=== PATIENT | female | born 1935 | race African-American/Black ===

== ENCOUNTER 2017-01-16 15:36 | Observation (INO) | payer OTHER ==
[2017-01-16 15:48] VITALS: BMI 20.9
--- NOTE | 2017-01-16 15:50 | PDOC ---
History of Present Illness <Ronen Gant - Last Filed: 01/16/17 18:14> - General History Source: Patient, Family Exam Limitations: No Limitations - History of Present Illness Initial Comments: 01/16/17 16:51 The patient is an 81 year old female with a significant past medical history of hypertension, lupus, aortic stenosis, osteoarthritis, hypothyroidism, mild stroke, and interstitial lung disease, sent by PCP to the Emergency Department with presyncopal episode this morning. The patient reports that she woke up this morning, walked to the bathroom and felt as if she was going to pass out . The patient reports that she got back into bed and experienced palpitations and shortness of breath. She admits that walking back to bed she had an unsteady gait. The patient reports that she has had night sweats for the past week. She also reports foul smelling urine. As per the patients daughter, the patient looked pale this morning. The patients daughter admits that the patient has a history of recurrent UTIs, most recently 2-3 months ago. The patient admits that she went to see Dr. Voss at 11am after the incident, who was suspicious of an acute COPD exacerbation and suggested she come to the ED. The patient denies fever, or cough. Patient denies chest pain. Patient denies dysuria, or urinary frequency. Patient denies loss of consciousness, or head trauma. Patient denies nausea, vomiting, and diarrhea. PCP: Dr. Nils Voss Cardio: Dr. Cota <Enedina Bennett - Last Filed: 01/16/17 18:21> - General Chief Complaint: Shortness of Breath Stated Complaint: SOB (PCP SENT) Time Seen by Provider: 01/16/17 15:48 Past History - Past Medical History Anemia: No Asthma: No Cancer: No Cardiac Disorders: No CVA: No COPD: No CHF: No Dementia: No Diabetes: No GI Disorders: No Disorders: No HTN: Yes Hypercholesterolemia: No Liver Disease: No Seizures: No Thyroid Disease: Yes Lung CA: No (interstitial lung disease) Other medical history: lupus, aortic stenosis - Immunization History Immunization Up to Date: Yes - Psycho/Social/Smoking Cessation Hx Suicidal Ideation: No Smoking History: Never smoked Have you smoked in the past 12 months: No Hx Alcohol Use: No Drug/Substance Use Hx: No Substance Use Type: None <Ronen Gant - Last Filed: 01/16/17 18:14> <Enedina Bennett - Last Filed: 01/16/17 18:21> - Past Medical History Allergies/Adverse Reactions: Allergies Allergy/AdvReac Type Severity Reaction Status Date / Time No Known Allergies Allergy Unverified 01/16/17 15:43 Home Medications: Ambulatory Orders Aspirin [ASA -] 81 mg PO DAILY 05/14/16 Diltiazem [Cardizem -] 180 mg PO BID 05/14/16 Donepezil HCl 5 mg PO DAILY 05/14/16 Furosemide 60 mg PO DAILY 05/14/16 Hydralazine HCl 50 mg PO TID 05/14/16 Isosorbide Mononitrate [Imdur -] 60 mg PO BID 05/14/16 Levothyroxine [Synthroid -] 50 mcg PO DAILY 05/14/16 Losartan Potassium 100 mg PO DAILY 05/14/16 Hydroxychloroquine So4 [Plaquenil -] 200 mg PO DAILY 01/16/17 Risedronate Sodium 150 mg PO MONTHLY 01/16/17 Review of Systems - Review of Systems Able to Perform ROS?: Yes Comments:: 01/16/17 16:52 GENERAL/CONSTITUTIONAL: + night sweats, + unsteady gait. No fever. No weakness. HEAD, EYES, EARS, NOSE AND THROAT: No change in vision. No ear pain or discharge. No sore throat. CARDIOVASCULAR: + palpitations, + shortness of breath. No chest pain. RESPIRATORY: No cough, wheezing, or hemoptysis. GASTROINTESTINAL: No nausea, vomiting, diarrhea or constipation. GENITOURINARY: + foul smelling urine. No dysuria, or frequency. MUSCULOSKELETAL: No joint or muscle swelling or pain. No neck or back pain. SKIN: No rash NEUROLOGIC: No headache, vertigo, loss of consciousness, or change in strength/ sensation. ENDOCRINE: No increased thirst. No abnormal weight change. HEMATOLOGIC/LYMPHATIC: No anemia, easy bleeding, or history of blood clots. ALLERGIC/IMMUNOLOGIC: No hives or skin allergy. <Enedina Bennett - Last Filed: 01/16/17 18:21> *Physical Exam - Vital Signs Last Vital Signs Temp Pulse Resp BP Pulse Ox 97.1 F L 68 22 147/66 97 01/16/17 15:43 01/16/17 15:43 01/16/17 15:43 01/16/17 15:43 01/16/17 15:43 <Ronen Gant - Last Filed: 01/16/17 18:14> - Vital Signs Last Vital Signs Temp Pulse Resp BP Pulse Ox 97.1 F L 68 22 147/66 100 01/16/17 15:43 01/16/17 15:43 01/16/17 15:43 01/16/17 15:43 01/16/17 16:10 - Physical Exam Comments: 01/16/17 16:54 GENERAL: Awake, alert, and fully oriented, in no acute distress HEAD: No signs of trauma EYES: PERRLA, EOMI, sclera anicteric, conjunctiva clear ENT: Auricles normal inspection, hearing grossly normal, nares patent, oropharynx clear without exudates. Moist mucosa NECK: Normal ROM, supple, no lymphadenopathy, JVD, or masses LUNGS: Breath sounds equal, clear to auscultation bilaterally. No wheezes, and no crackles HEART: Systolic murmur, regular rate and rhythm, normal S1 and S2, no murmurs, rubs or gallops ABDOMEN: Soft, nontender, normoactive bowel sounds. No guarding, no rebound. No masses EXTREMITIES: Normal range of motion, no edema. No clubbing or cyanosis. No cords, erythema, or tenderness NEUROLOGICAL: Cranial nerves II through XII grossly intact. Normal speech SKIN: Warm, Dry, normal turgor, no rashes or lesions noted. <Enedina Bennett - Last Filed: 01/16/17 18:21> ED Treatment Course - LABORATORY CBC & Chemistry Diagram: 01/16/17 16:50 01/16/17 16:50 <Ronen Gant - Last Filed: 01/16/17 18:14> - LABORATORY CBC & Chemistry Diagram: 01/16/17 16:50 01/16/17 16:50 - RADIOLOGY Radiograph Interpretation: 01/16/17 17:41 Chest XRay As reviewed by Dr. Luz Jimenez IMPRESSION: Since prior chest xray, the cardiac silhouette remains slightly to moderately enlarged with unfolding of the aortic arch. Bilateral increased interstitial lung markings are again seen mainly involving the lower lobes. Superimposed infiltrates cannot be excluded. Mediastinum and visualized osseous structures appear intact. <Enedina Bennett - Last Filed: 01/16/17 18:21> Medical Decision Making - Medical Decision Making 01/16/17 18:06 Dr. Voss was called at his office at 6:07. Awaiting call back. 01/16/17 18:11 Dr. Wilson returned call and spoke to Dr. Gant about the patient's care. Dr. Wilson agreed to admit for chest pain, to admits under [place]'s service, and Dr. Wilson will input orders. <Enedina Bennett - Last Filed: 01/16/17 18:21> *DC/Admit/Observation/Transfer - Discharge Dispostion Admit: Yes - Attestations Physician Attestion: 01/16/17 15:50 I, Dr. Ronen Gant, attest that this document has been prepared under my direction and personally reviewed by me in its entirety. I further attest, that it accurately reflects all work, treatment, procedures and medical decision -making performed by me. <Ronen Gant - Last Filed: 01/16/17 18:14> - Attestations Scribe Attestion: 01/16/17 16:55 Documentation prepared by Enedina Bennett, acting as medical director for Ronen Gant DO. <Enedina Bennett - Last Filed: 01/16/17 18:21> Diagnosis at time of Disposition: Syncope, near, Hypothyroid Chest pain Qualifiers: Chest pain type: unspecified Qualified Code(s): R07.9 - Chest pain, unspecified Dyspnea Qualifiers: Dyspnea type: shortness of breath Qualified Code(s): R06.02 - Shortness of breath - Discharge Dispostion Condition at time of disposition: Unchanged/Unknown - Referrals Referrals: Nils Voss MD [Primary Care Provider] -
[2017-01-16 17:20] LABS: BASOPHIL 2.2 % (0-2.0); EOSINOPHIL 0.3 % (0-4.5); MCH 25.6 pg (25.7-33.7); MCHC 33.7 g/dl (32.0-36.0); MEAN CELL VOLUME 75.9 fl (80-96); MEAN PLT VOLUME 9.2 fl (7.5-11.1); PLATELET COUNT 229 K/MM3 (134-434); RDW 19.9 % (11.6-15.6); WHITE BLOOD COUNT 4.9 K/mm3 (4.0-10.0)
[2017-01-16 17:34] LABS: INR 1.14 (0.82-1.09); PROTHROMBIN TIME (PATIENT) 12.6 SEC (9.98-11.88)
[2017-01-16 17:41] LABS: ALBUMIN 3.4 g/dl (3.4-5.0); ANION GAP 10 (8-16); BILIRUBIN,TOTAL 0.7 mg/dL (0.2-1.0); CALCIUM 8.3 mg/dL (8.5-10.1); CO2 25 mmol/L (21-32); CREATININE 0.9 mg/dL (0.55-1.02); GLUCOSE,RANDOM 79 mg/dL (74-106); SGPT/ALT 15 U/L (12-78); TOT PROT 9.2 g/dl (6.4-8.2)
[2017-01-16 17:44] LABS: ALK PHOS 99 U/L (45-117); TROPONIN I < 0.02 ng/ml (0.00-0.05)
[2017-01-16 17:45] LABS: SGOT/AST 28 U/L (15-37)
[2017-01-16] MEDS ORDERED: hydrALAZINE HCL 50 MG TABLET (FP) PO ONE (18:23)
[2017-01-16] MEDS ORDERED: ISOSORBIDE MONONITRATE 60 MG TAB.SR.24H (FP) PO ONE ×2 (18:24→18:26)
[2017-01-16] MEDS ORDERED: hydrALAZINE HCL 25 MG TABLET (FP) ONE (18:26)
[2017-01-16 18:38] LABS: URINE APPEARANCE CLEAR; URINE BILIRUBIN NEGATIVE (NEGATIVE); URINE BLOOD NEGATIVE (NEGATIVE); URINE GLUCOSE (UA) NEGATIVE (NEGATIVE); URINE KETONE NEGATIVE (NEGATIVE); URINE LEUK ESTERASE NEGATIVE (NEGATIVE); URINE PROTEIN NEGATIVE (NEGATIVE); URINE UROBILINOGEN 0.2 E.U/dl E.U./dl (0.2-1.0)
[2017-01-16 18:43] LABS: URINE COLOR YELLOW; URINE NITRITE POSITIVE (NEGATIVE)
[2017-01-16 18:58] LABS: URINE BACTERIA RARE /hpf (NONE SEEN); URINE MUCUS RARE; URINE RBC 1 /hpf (0-3); URINE WBC 1 /hpf (3-5)
[2017-01-16] MEDS ORDERED: CEFTRIAXONE 1 GM in DEXTROSE 5%-WATER - 50 ML IVPB ONE (19:08)
[2017-01-16] MEDS ORDERED: RISEDRONATE SODIUM 150 MG PO SCH (23:30)
[2017-01-17] MEDS: hydrALAZINE HCL 50 MG TABLET (FP) PO SCH ×3 (06:29→21:07)
[2017-01-17] MEDS: LEVOTHYROXINE NA 50 MCG TABLET (FP) PO SCH (06:29)
--- NOTE | 2017-01-17 09:02 | EKG ---
Test Reason : Blood Pressure : / mmHG Vent. Rate : 075 BPM Atrial Rate : 075 BPM P-R Int : 142 ms QRS Dur : 096 ms QT Int : 420 ms P-R-T Axes : -13 -34 -35 degrees QTc Int : 469 ms SINUS RHYTHM WITH PREMATURE ATRIAL COMPLEXES LEFT AXIS DEVIATION NONSPECIFIC ST AND T WAVE ABNORMALITY ABNORMAL ECG Confirmed by GOKUL FOSTER MD ([id number]) on 01/17/2017 9:01:38 AM Referred By: Confirmed By:GOKUL FOSTER MD
[2017-01-17] MEDS: ASPIRIN 81 MG CHEWABLE TABLETS PO SCH (09:55)
[2017-01-17] MEDS: LOSARTAN POTASSIUM 50 MG TABLET (FP) PO SCH (09:55)
[2017-01-17] MEDS: ISOSORBIDE MONONITRATE 60 MG TAB.SR.24H (FP) PO SCH ×2 (09:55→21:08)
[2017-01-17] MEDS: FUROSEMIDE 20 MG TABLET (FP) PO SCH (09:55)
[2017-01-17] MEDS: dilTIAZem HCL 60 MG TABLET (FP) PO SCH ×2 (09:55→21:07)
[2017-01-17] MEDS: HYDROXYCHLOROQUINE SO4 200 MG TABLET (FP) PO SCH (09:56)
--- NOTE | 2017-01-17 11:09 | CON.CARD ---
Cardiology Consult (text) - Consultation Consultation Note: cc: lightheaded hpi: 81 f hx htn, hypothyroid, sle, , dchf/le edema, palps, here with episode of presyncope. Pt says yesterday she stood up to use bathroom and felt lightheaded. She did not pass out or fall. She sat back down and symptoms resolved. She went to pmd and sent to ER for further eval. Pt denies cp, sob, palps, loc, pnd, orthopnea, le edema. Sees me for cardio. pmh: per hpi psh: nc social: no tob fam: no premature cad, scd ros: per hpi; no fever, nvd, cough, nasal congestion, gillespie, vision changes, gib, hematuria, muscle pain meds: Home Medications Medication Instructions Recorded Aspirin [ASA -] 81 mg PO DAILY 05/14/16 Diltiazem [Cardizem -] 180 mg PO BID 05/14/16 Donepezil HCl 5 mg PO HS 05/14/16 Furosemide 60 mg PO DAILY 05/14/16 Hydralazine HCl 50 mg PO TID 05/14/16 Isosorbide Mononitrate [Imdur -] 60 mg PO BID 05/14/16 Levothyroxine [Synthroid -] 50 mcg PO DAILY 05/14/16 Losartan Potassium 100 mg PO DAILY 05/14/16 Hydroxychloroquine So4 [Plaquenil 200 mg PO DAILY 01/16/17 -] Risedronate Sodium 150 mg PO MONTHLY 01/16/17 pe: Vital Signs Period Temp Pulse Resp BP Sys/Negron Pulse Ox Last 24 Hr 97.1 F-98.9 F 61-74 16-22 145-185/66-90 97-100 nad no jvd rrr s1s2 +as murmur, no rg cta bl nl eff aaox3 no le e/c/c abd nt nd pos bs no jaundice diaphoresis pos dp pt no carotid bruits Laboratory Last Values WBC 4.9 K/mm3 (4.0-10.0) 01/16/17 16:50 RBC 4.21 M/mm3 (3.60-5.2) 01/16/17 16:50 Hgb 10.8 GM/dL (10.7-15.3) 01/16/17 16:50 Hct 32.0 % (32.4-45.2) L 01/16/17 16:50 MCV 75.9 fl (80-96) L 01/16/17 16:50 MCHC 33.7 g/dl (32.0-36.0) 01/16/17 16:50 RDW 19.9 % (11.6-15.6) H 01/16/17 16:50 Plt Count 229 K/MM3 (134-434) 01/16/17 16:50 MPV 9.2 fl (7.5-11.1) 01/16/17 16:50 Neutrophils % 80.0 % (42.8-82.8) D 01/16/17 16:50 Lymphocytes % 11.8 % (8-40) D 01/16/17 16:50 Monocytes % 5.7 % (3.8-10.2) 01/16/17 16:50 Eosinophils % 0.3 % (0-4.5) D 01/16/17 16:50 Basophils % 2.2 % (0-2.0) H 01/16/17 16:50 INR 1.14 (0.82-1.09) 01/16/17 16:50 Sodium 140 mmol/L (136-145) 01/16/17 16:50 Potassium 3.8 mmol/L (3.5-5.1) 01/16/17 16:50 Chloride 105 mmol/L (98-107) 01/16/17 16:50 Carbon Dioxide 25 mmol/L (21-32) 01/16/17 16:50 Anion Gap 10 (8-16) 01/16/17 16:50 BUN 26 mg/dL (7-18) H 01/16/17 16:50 Creatinine 0.9 mg/dL (0.55-1.02) 01/16/17 16:50 Creat Clearance w eGFR 59.80 (>60) 01/16/17 16:50 Random Glucose 79 mg/dL (74-106) 01/16/17 16:50 Lactic Acid 0.7 mmol/L (0.4-2.0) 01/16/17 17:16 Calcium 8.3 mg/dL (8.5-10.1) L 01/16/17 16:50 Total Bilirubin 0.7 mg/dL (0.2-1.0) 01/16/17 16:50 AST 28 U/L (15-37) D 01/16/17 16:50 ALT 15 U/L (12-78) 01/16/17 16:50 Alkaline Phosphatase 99 U/L (45-117) 01/16/17 16:50 Creatine Kinase 90 IU/L (26-192) 01/16/17 16:50 Troponin I < 0.02 ng/ml (0.00-0.05) 01/16/17 16:50 B-Natriuretic Peptide 431.40 pg/ml (5-450) 01/16/17 16:50 Total Protein 9.2 g/dl (6.4-8.2) H 01/16/17 16:50 Albumin 3.4 g/dl (3.4-5.0) 01/16/17 16:50 Urine Color Yellow 01/16/17 17:30 Urine Appearance Clear 01/16/17 17:30 Urine pH 6.0 (5.0-8.0) 01/16/17 17:30 Ur Specific [place] 1.020 (1.005-1.025) 01/16/17 17:30 Urine Protein Negative (NEGATIVE) 01/16/17 17:30 Urine Glucose (UA) Negative (NEGATIVE) 01/16/17 17:30 Urine Ketones Negative (NEGATIVE) 01/16/17 17:30 Urine Blood Negative (NEGATIVE) 01/16/17 17:30 Urine Nitrite Positive (NEGATIVE) 01/16/17 17:30 Urine Bilirubin Negative (NEGATIVE) 01/16/17 17:30 Urine Urobilinogen 0.2 e.u/dl E.U./dl (0.2-1.0) 01/16/17 17:30 Ur Leukocyte Esterase Negative (NEGATIVE) 01/16/17 17:30 Urine RBC 1 /hpf (0-3) 01/16/17 17:30 Urine WBC 1 /hpf (3-5) 01/16/17 17:30 Urine Bacteria Rare /hpf (NONE SEEN) 01/16/17 17:30 Urine Mucus Rare 01/16/17 17:30 ecg 01/16/17: sr, pacs, nl intervals, no ischemic changes cxr: no chf echo 03/2016: nl lv/rv, mild lae, mild ar, mod , mac, mild tr, mild phtn echo 05/2016: nl lv/rv, mod donte, rvsp 40-50, mod tr, mod as, mild-mod ar, mild- mod pr event monitor (2 weeks) 03/2016: benign, occ pacs, pvcs carotids 01/2015: small plaque, no sig stenosis mibi 02/2015: no ischemia tele: sr, pacs a/p: 81 f hx htn, hypothyroid, sle, , dchf/le edema, palps, here with episode of presyncope. presyncope: -seems orthostatic based on description -recent carotid US unremarkable when admitted here 05/2016 -echo 05/2016 no sig change from prior -no signs acs or chf -will check updated echo to see if any change in severity of -will order orthostatic VS's -monitor on tele 24 hours -infection w/u per pmd htn: -cont home meds : -05/2016 echo with moderate , will check updated echo here given her presyncope episode chronic diastolic chf: -stable, no gross vol overload, cont home po lasix palps: -chronic symptom likely due to occasional pacs and pvcs seen on outpt holter and event monitor -normal lvef -has not been bothering pt, monitor for now
--- NOTE | 2017-01-17 12:00 | HP ---
Admitting History and Physical - Primary Care Physician PCP: Nils Voss - Admission Chief Complaint: I felt weak History of Present Illness: Ms Lu is a pleasant 81 year old female who comes in with lightheadedness. According to patient and daughter, she has non-specific complaints of not feeling well since 01/14. Patient cannot describe exactly what that meant earlier this week, but yesterday she says she began to feel very weak. She says she got up to make tea and began to feel lightheaded. She was able to make it back to the bed without falling, but she says she was weak as well. She was also short of breath. Her daughter saw her and felt her color was off, she was seen by Dr Voss and sent in for further evaluation. Patient said she had L sided chest pain and daughter says yesterday she was having left sided flank pain. Aside from this she is without complaint. She denies fevers, chills, passing out, chest pain, coughing, abdominal pain, nausea, vomiting, diarrhea, constipation, or swelling. She is currently feeling better. History Source: Patient Limitations to Obtaining History: No Limitations - Past Medical History REVENUE RESEARCH ANALYST: Yes: TIA Cardiovascular: Yes: Aortic Stenosis, HTN Pulmonary: Yes: Other (ILD) Musculoskeletal: Yes: Osteoarthritis Rheumatology: Yes: Lupus Endocrine: Yes: Hypothyroidism - Smoking History Smoking history: Never smoked Have you smoked in the past 12 months: No - Alcohol/Substance Use Hx Alcohol Use: No History of Substance Use: reports: None - Social History Usual Living Arrangement: Yes: With Child ADL: Family Assistance Occupation: former nurse's aide History of Recent Travel: No Home Medications - Allergies Allergies/Adverse Reactions: Allergies Allergy/AdvReac Type Severity Reaction Status Date / Time No Known Allergies Allergy Unverified 01/16/17 15:43 - Home Medications Home Medications: Ambulatory Orders Aspirin [ASA -] 81 mg PO DAILY 05/14/16 Diltiazem [Cardizem -] 180 mg PO BID 05/14/16 Donepezil HCl 5 mg PO HS 05/14/16 Furosemide 60 mg PO DAILY 05/14/16 Hydralazine HCl 50 mg PO TID 05/14/16 Isosorbide Mononitrate [Imdur -] 60 mg PO BID 05/14/16 Levothyroxine [Synthroid -] 50 mcg PO DAILY 05/14/16 Losartan Potassium 100 mg PO DAILY 05/14/16 Hydroxychloroquine So4 [Plaquenil -] 200 mg PO DAILY 01/16/17 Risedronate Sodium 150 mg PO MONTHLY 01/16/17 Family Disease History - Family Disease History Family History: Unremarkable Review of Systems Findings/Remarks: Full review of systems obtained, as per HPI and otherwise negative. Physical Examination Vital Signs: Vital Signs Temperature 98.2 F 01/17/17 08:10 Pulse Rate 74 01/17/17 08:10 Respiratory Rate 16 01/17/17 08:10 Blood Pressure 160/90 01/17/17 08:10 O2 Sat by Pulse Oximetry (%) 96 01/17/17 10:00 Constitutional: Yes: Well Nourished, No Distress, Calm Eyes: Yes: Conjunctiva Clear, EOM Intact, PERRL HENT: Yes: Atraumatic, Normocephalic Cardiovascular: Yes: Regular Rate and Rhythm. No: Gallop, Murmur, Rub Respiratory: Yes: Regular, Rhonchi (bibasilar). No: Rales, Wheezes Gastrointestinal: Yes: Normal Bowel Sounds, Soft. No: Distention, Tenderness Extremities: Yes: WNL Edema: No Labs: Laboratory Results - last 24 hr 01/16/17 01/16/17 01/16/17 16:50 16:50 16:50 WBC 4.9 RBC 4.21 Hgb 10.8 Hct 32.0 L MCV 75.9 L MCHC 33.7 RDW 19.9 H Plt Count 229 MPV 9.2 Neutrophils % 80.0 D Lymphocytes % 11.8 D Monocytes % 5.7 Eosinophils % 0.3 D Basophils % 2.2 H INR 1.14 Sodium 140 Potassium 3.8 Chloride 105 Carbon Dioxide 25 Anion Gap 10 BUN 26 H Creatinine 0.9 Creat Clearance w eGFR 59.80 Random Glucose 79 Lactic Acid Calcium 8.3 L Total Bilirubin 0.7 AST 28 D ALT 15 Alkaline Phosphatase 99 Creatine Kinase 90 Troponin I < 0.02 B-Natriuretic Peptide 431.40 Total Protein 9.2 H Albumin 3.4 Urine Color Urine Appearance Urine pH Ur Specific [place] Urine Protein Urine Glucose (UA) Urine Ketones Urine Blood Urine Nitrite Urine Bilirubin Urine Urobilinogen Ur Leukocyte Esterase Urine RBC Urine WBC Urine Bacteria Urine Mucus 01/16/17 01/16/17 17:16 17:30 WBC RBC Hgb Hct MCV MCHC RDW Plt Count MPV Neutrophils % Lymphocytes % Monocytes % Eosinophils % Basophils % INR Sodium Potassium Chloride Carbon Dioxide Anion Gap BUN Creatinine Creat Clearance w eGFR Random Glucose Lactic Acid 0.7 Calcium Total Bilirubin AST ALT Alkaline Phosphatase Creatine Kinase Troponin I B-Natriuretic Peptide Total Protein Albumin Urine Color Yellow Urine Appearance Clear Urine pH 6.0 Ur Specific [place] 1.020 Urine Protein Negative Urine Glucose (UA) Negative Urine Ketones Negative Urine Blood Negative Urine Nitrite Positive Urine Bilirubin Negative Urine Urobilinogen 0.2 e.u/dl Ur Leukocyte Esterase Negative Urine RBC 1 Urine WBC 1 Urine Bacteria Rare Urine Mucus Rare Imaging - Results Chest X-ray: Report Reviewed, Image Reviewed Problem List - Problems (1) Syncope, near Assessment/Plan: -sounds orthostatic in nature -agree with cardiology evaluation -check orthostatic vital signs -monitor -PT consult Code(s): R55 - SYNCOPE AND COLLAPSE (2) Hypothyroid Assessment/Plan: -continue synthroid Code(s): E03.9 - HYPOTHYROIDISM, UNSPECIFIED (3) CVA (cerebral vascular accident) Assessment/Plan: -stable -continue aspirin Code(s): I63.9 - CEREBRAL INFARCTION, UNSPECIFIED (4) Hypertension Assessment/Plan: -continue hydralazine, diltiazem, and cozaar -monitor, elevated on last check Code(s): I10 - ESSENTIAL (PRIMARY) HYPERTENSION (5) Flank pain Assessment/Plan: -urinalysis shows nitrites positive -will check ultrasound -continue rocephin empirically, day 2 Code(s): R10.9 - UNSPECIFIED ABDOMINAL PAIN
[2017-01-17] MEDS: LACTOBACILLUS ACIDOPHILUS 1 EACH TAB (FP) PO SCH (17:17)
[2017-01-17] MEDS: CEFTRIAXONE 50 ML IVPB SCH (17:17)
[2017-01-17] MEDS: DONEPEZIL HCL 5 MG TABLET (FP) PO SCH (21:07)
[2017-01-18] MEDS: LEVOTHYROXINE NA 50 MCG TABLET (FP) PO SCH (06:16)
[2017-01-18] MEDS: hydrALAZINE HCL 50 MG TABLET (FP) PO SCH ×3 (06:16→21:10)
[2017-01-18 07:55] LABS: BASOPHIL 0.6 % (0-2.0); EOSINOPHIL 6.7 % (0-4.5); MCHC 34.3 g/dl (32.0-36.0); MEAN CELL VOLUME 75.9 fl (80-96); NEUTROPHILS 59.9 % (42.8-82.8); PLATELET COUNT 199 K/MM3 (134-434); RDW 19.3 % (11.6-15.6); WHITE BLOOD COUNT 6.3 K/mm3 (4.0-10.0)
[2017-01-18 08:20] LABS: ANION GAP 9 (8-16); CALCIUM 7.8 mg/dL (8.5-10.1); CO2 27 mmol/L (21-32); CREATININE 0.8 mg/dL (0.55-1.02); GLUCOSE,RANDOM 75 mg/dL (74-106); MAGNESIUM 2.1 mg/dL (1.8-2.4); PHOSPHOROUS 2.9 mg/dL (2.5-4.9)
--- NOTE | 2017-01-18 10:23 | PN ---
Progress Note, Physician History of Present Illness: Feeling a little better, but has not gotten out of bed yet this morning. Urine culture returning with >100,000 GNB - Current Medication List Current Medications: Active Medications Aspirin (Asa -) 81 mg PO DAILY [facility] Last Admin: 01/17/17 09:55 Dose: 81 mg Diltiazem HCl (Cardizem -) 180 mg PO BID [facility] Last Admin: 01/17/17 21:07 Dose: 180 mg Donepezil HCl (Aricept -) 5 mg PO HS [facility] Last Admin: 01/17/17 21:07 Dose: 5 mg Furosemide (Lasix -) 60 mg PO DAILY [facility] Last Admin: 01/17/17 09:55 Dose: 60 mg Hydralazine HCl (Apresoline -) 50 mg PO TID [facility] Last Admin: 01/18/17 06:16 Dose: 50 mg Hydroxychloroquine Sulfate (Plaquenil -) 200 mg PO DAILY [facility] Last Admin: 01/17/17 09:56 Dose: 200 mg Ceftriaxone Sodium (Rocephin 1gm Ivpb (Pre-Docked)) 50 mls @ 100 mls/hr IVPB DAILY [facility] Last Admin: 01/17/17 17:17 Dose: 100 mls/hr Isosorbide Mononitrate (Imdur -) 60 mg PO BID [facility] Last Admin: 01/17/17 21:08 Dose: 60 mg Lactobacillus Acidophilus (Bacid -) 1 tab PO DAILY [facility] Last Admin: 01/17/17 17:17 Dose: 1 tab Levothyroxine Sodium (Synthroid -) 50 mcg PO AM [facility] Last Admin: 01/18/17 06:16 Dose: 50 mcg Losartan Potassium (Cozaar -) 100 mg PO DAILY [facility] Last Admin: 01/17/17 09:55 Dose: 100 mg - Objective Vital Signs: Vital Signs Temperature 98.8 F 01/18/17 01:59 Pulse Rate 65 01/18/17 05:10 Respiratory Rate 20 01/18/17 05:27 Blood Pressure 156/95 01/18/17 05:10 O2 Sat by Pulse Oximetry (%) 98 01/18/17 05:27 Constitutional: Yes: No Distress, Calm Eyes: Yes: Conjunctiva Clear, EOM Intact HENT: Yes: Atraumatic, Normocephalic Cardiovascular: Yes: Regular Rate and Rhythm, S1, S2. No: Murmur Respiratory: Yes: Regular, CTA Bilaterally. No: Rales, Rhonchi, Wheezes Gastrointestinal: Yes: Normal Bowel Sounds, Soft. No: Distention, Tenderness Edema: No Neurological: Yes: Alert, Oriented Labs: CBC, BMP 01/18/17 06:00 01/18/17 06:00 INR, PTT INR 1.14 (0.82-1.09) 01/16/17 16:50 Assessment/Plan Current Active Problems Chest pain (Acute) Dyspnea (Acute) Flank pain (Acute) Hypothyroid (Acute) Syncope, near (Acute) Urinary tract infection -cont abx -cardio to eval today -if remains asymptomatic will discharge in AM (gettign IV abx currently) -discussed with patient's dtr
[2017-01-18] MEDS: LOSARTAN POTASSIUM 50 MG TABLET (FP) PO SCH (10:24)
[2017-01-18] MEDS: dilTIAZem HCL 60 MG TABLET (FP) PO SCH ×2 (10:24→21:10)
[2017-01-18] MEDS: LACTOBACILLUS ACIDOPHILUS 1 EACH TAB (FP) PO SCH (10:24)
[2017-01-18] MEDS: ASPIRIN 81 MG CHEWABLE TABLETS PO SCH (10:24)
[2017-01-18] MEDS: FUROSEMIDE 20 MG TABLET (FP) PO SCH (10:25)
[2017-01-18] MEDS: ISOSORBIDE MONONITRATE 60 MG TAB.SR.24H (FP) PO SCH ×2 (10:25→21:10)
[2017-01-18] MEDS: CEFTRIAXONE 50 ML IVPB SCH (10:25)
[2017-01-18] MEDS: HYDROXYCHLOROQUINE SO4 200 MG TABLET (FP) PO SCH (15:24)
--- NOTE | 2017-01-18 16:17 | PN ---
Progress Note (short form) - Note Progress Note: cc: lightheaded S: no complaints. dizziness improved. no cp, palps, sob Current Medications Aspirin (Asa -) 81 mg PO DAILY [facility] Last Admin: 01/18/17 10:24 Dose: 81 mg Diltiazem HCl (Cardizem -) 180 mg PO BID [facility] Last Admin: 01/18/17 21:10 Dose: 180 mg Donepezil HCl (Aricept -) 5 mg PO HS [facility] Last Admin: 01/18/17 21:09 Dose: 5 mg Furosemide (Lasix -) 60 mg PO DAILY [facility] Last Admin: 01/18/17 10:25 Dose: 60 mg Hydralazine HCl (Apresoline -) 50 mg PO TID [facility] Last Admin: 01/18/17 21:10 Dose: 50 mg Hydroxychloroquine Sulfate (Plaquenil -) 200 mg PO DAILY [facility] Last Admin: 01/18/17 15:24 Dose: 200 mg Ceftriaxone Sodium (Rocephin 1gm Ivpb (Pre-Docked)) 50 mls @ 100 mls/hr IVPB DAILY [facility] Last Admin: 01/18/17 10:25 Dose: 100 mls/hr Isosorbide Mononitrate (Imdur -) 60 mg PO BID [facility] Last Admin: 01/18/17 21:10 Dose: 60 mg Lactobacillus Acidophilus (Bacid -) 1 tab PO DAILY [facility] Last Admin: 01/18/17 10:24 Dose: 1 tab Levothyroxine Sodium (Synthroid -) 50 mcg PO AM [facility] Last Admin: 01/18/17 06:16 Dose: 50 mcg Losartan Potassium (Cozaar -) 100 mg PO DAILY [facility] Last Admin: 01/18/17 10:24 Dose: 100 mg Vital Signs - 24 hr 01/17/17 01/18/17 01/18/17 22:35 01:59 05:10 Temperature 98.8 F Pulse Rate 73 Pulse Rate [ 76 Right side Sitting] Pulse Rate [ 72 Right side Standing] Pulse Rate [ 65 Right side Supine] Respiratory 20 20 Rate Blood Pressure 139/74 Blood Pressure 164/82 [Right side Sitting] Blood Pressure 171/84 [Right side Standing] Blood Pressure 156/95 [Right side Supine] O2 Sat by Pulse 98 Oximetry (%) 01/18/17 01/18/17 01/18/17 05:27 10:23 15:00 Temperature 98 F Pulse Rate 71 Pulse Rate [ Right side Sitting] Pulse Rate [ Right side Standing] Pulse Rate [ Right side Supine] Respiratory 20 20 20 Rate Blood Pressure 149/70 Blood Pressure [Right side Sitting] Blood Pressure [Right side Standing] Blood Pressure [Right side Supine] O2 Sat by Pulse 98 98 Oximetry (%) 01/18/17 01/18/17 01/18/17 15:28 15:34 17:00 Temperature 98 F 98.7 F 98.0 F Pulse Rate 77 84 72 Pulse Rate [ Right side Sitting] Pulse Rate [ Right side Standing] Pulse Rate [ Right side Supine] Respiratory 20 18 Rate Blood Pressure 130/85 153/68 146/97 Blood Pressure [Right side Sitting] Blood Pressure [Right side Standing] Blood Pressure [Right side Supine] O2 Sat by Pulse Oximetry (%) 01/18/17 01/18/17 21:00 22:11 Temperature 98.3 F Pulse Rate 75 Pulse Rate [ Right side Sitting] Pulse Rate [ Right side Standing] Pulse Rate [ Right side Supine] Respiratory 18 18 Rate Blood Pressure 143/89 Blood Pressure [Right side Sitting] Blood Pressure [Right side Standing] Blood Pressure [Right side Supine] O2 Sat by Pulse 98 Oximetry (%) Intake & Output 01/16/17 01/17/17 01/18/17 01/19/17 07:59 07:59 07:59 07:59 Intake Total 750 460 Balance 750 460 Weight 125 lb 126 lb nad no jvd rrr s1s2 +as murmur, no rg cta bl nl eff aaox3 no le e/c/c abd nt nd pos bs no jaundice diaphoresis pos dp pt no carotid bruits CBC, BMP 01/18/17 06:00 01/18/17 06:00 ecg 01/16/17: sr, pacs, nl intervals, no ischemic changes cxr: no chf echo 03/2016: nl lv/rv, mild lae, mild ar, mod , mac, mild tr, mild phtn echo 05/2016: nl lv/rv, mod donte, rvsp 40-50, mod tr, mod as, mild-mod ar, mild- mod pr event monitor (2 weeks) 03/2016: benign, occ pacs, pvcs carotids 01/2015: small plaque, no sig stenosis mibi 02/2015: no ischemia tele: sr, frequent pacs a/p: 81 f hx htn, hypothyroid, sle, , dchf/le edema, palps, here with episode of presyncope. presyncope: -seems orthostatic based on description, but orthostatics negative. -recent carotid US unremarkable when admitted here 05/2016 -echo 05/2016 no sig change from prior -no signs acs or chf -repeat echo without worsening of -monitor on tele 24 hours -infection w/u per pmd --> possible uti htn: -cont home meds : -05/2016 echo with moderate , will check updated echo here given her presyncope episode chronic diastolic chf: -stable, no gross vol overload, cont home po lasix. orthostatics negative, nl po intake. palps/frequent pacs -chronic symptom likely due to occasional pacs and pvcs seen on outpt holter and event monitor -normal lvef -has not been bothering pt, monitor for now - lyte repletion stable from CV perspective, If plan is d/c tomorrow, ok from CV perspective. If patient stays tomorrow would, ok to d/c telemetry. Outpatient cardiology follow up.
[2017-01-18] MEDS ORDERED: POTASSIUM CHLORIDE TABS 20 MEQ TABLET.ER (FP) PO ONE (16:40)
[2017-01-18] MEDS: DONEPEZIL HCL 5 MG TABLET (FP) PO SCH (21:09)
[2017-01-19] MEDS: LEVOTHYROXINE NA 50 MCG TABLET (FP) PO SCH (06:46)
[2017-01-19] MEDS: hydrALAZINE HCL 50 MG TABLET (FP) PO SCH (06:46)
[2017-01-19 07:20] LABS: ANION GAP 8 (8-16); CALCIUM 7.4 mg/dL (8.5-10.1); CO2 25 mmol/L (21-32); CREATININE 0.8 mg/dL (0.55-1.02); GLUCOSE,RANDOM 78 mg/dL (74-106)
[2017-01-19] MEDS: LACTOBACILLUS ACIDOPHILUS 1 EACH TAB (FP) PO SCH (09:10)
[2017-01-19] MEDS: FUROSEMIDE 20 MG TABLET (FP) PO SCH (09:10)
[2017-01-19] MEDS: ASPIRIN 81 MG CHEWABLE TABLETS PO SCH (09:10)
[2017-01-19] MEDS: LOSARTAN POTASSIUM 50 MG TABLET (FP) PO SCH (09:10)
[2017-01-19] MEDS: CEFTRIAXONE 50 ML IVPB SCH (09:10)
[2017-01-19] MEDS: dilTIAZem HCL 60 MG TABLET (FP) PO SCH (09:10)
[2017-01-19] MEDS: ISOSORBIDE MONONITRATE 60 MG TAB.SR.24H (FP) PO SCH (09:10)
[2017-01-19 09:20] VITALS: BP 134/64; PULSE 74; TEMP 98.8
--- NOTE | 2017-01-19 09:22 | DS ---
Physical Examination Vital Signs: Vital Signs Temperature 99.3 F 01/19/17 02:00 Pulse Rate 67 01/19/17 05:25 Respiratory Rate 18 01/19/17 02:00 Blood Pressure 138/74 01/19/17 05:25 O2 Sat by Pulse Oximetry (%) 98 01/18/17 22:11 Constitutional: Yes: Well Nourished, No Distress, Calm Eyes: Yes: Conjunctiva Clear, EOM Intact, PERRL HENT: Yes: Atraumatic, Normocephalic Neck: Yes: Supple, Trachea Midline Cardiovascular: Yes: Regular Rate and Rhythm, S1, S2. No: Murmur Respiratory: Yes: Regular, CTA Bilaterally. No: Rales, Rhonchi, Wheezes Gastrointestinal: Yes: Normal Bowel Sounds, Soft. No: Distention, Tenderness Edema: No Neurological: Yes: Alert, Oriented Labs: CBC, BMP 01/19/17 05:40 Discharge Summary Reason For Visit: DYSPNEA/PRE SYNCOPE/WEAKNESS Current Active Problems Chest pain (Acute) Dyspnea (Acute) Flank pain (Acute) Hypothyroid (Acute) Syncope, near (Acute) Hospital Course: 81 yo female admitted with presyncope, found to have UTI. Was slightly orthostatic on exam, but symptoms improved with antibiiotics. Seen by cardiology and had repeat echo to rule out worsening of known aortic stenosis, but echo showed stable findings with . Has completed 3 days of IV rocephin and to discharge home with PO cipro for 3 more days. Condition: Unchanged/Unknown - Instructions Referrals: Nils Voss MD [Primary Care Provider] - Disposition: HOME - Home Medications Comprehensive Discharge Medication List: Ambulatory Orders Aspirin [ASA -] 81 mg PO DAILY 05/14/16 Diltiazem [Cardizem -] 180 mg PO BID 05/14/16 Donepezil HCl 5 mg PO HS 05/14/16 Furosemide 60 mg PO DAILY 05/14/16 Hydralazine HCl 50 mg PO TID 05/14/16 Isosorbide Mononitrate [Imdur -] 60 mg PO BID 05/14/16 Levothyroxine [Synthroid -] 50 mcg PO DAILY 05/14/16 Losartan Potassium 100 mg PO DAILY 05/14/16 Hydroxychloroquine So4 [Plaquenil -] 200 mg PO DAILY 01/16/17 Risedronate Sodium 150 mg PO MONTHLY 01/16/17 Ciprofloxacin HCl 500 mg PO BID #6 tablet 01/19/17
[2017-01-19] MEDS: HYDROXYCHLOROQUINE SO4 200 MG TABLET (FP) PO SCH (09:36)
[2017-01-19 09:47] LABS: BASOPHIL 0.8 % (0-2.0); EOSINOPHIL 10.8 % (0-4.5); MCH 25.8 pg (25.7-33.7); MCHC 33.7 g/dl (32.0-36.0); MEAN CELL VOLUME 76.6 fl (80-96); NEUTROPHILS 52.9 % (42.8-82.8); PLATELET COUNT 182 K/MM3 (134-434); RDW 19.7 % (11.6-15.6); WHITE BLOOD COUNT 5.8 K/mm3 (4.0-10.0)
== END 2017-01-19 11:50 | disposition home or self-care (01) ==
LOC: JER 15:36 → JERBED 18:16 → INTOOBSV 18:16 → UNDOADMOB 18:16 → JERBED 20:09 → J4W 20:09 → JERBED 23:15 → J4W 23:15
PROVIDERS: ADMIT Internal Medicine; ATTEND Internal Medicine
DX: R55 Syncope and collapse (principal); R07.9 Chest pain, unspecified; R06.02 Shortness of breath; E03.9 Hypothyroidism, unspecified; I10 Essential (primary) hypertension; I35.0 Nonrheumatic aortic (valve) stenosis; M19.90 Unspecified osteoarthritis, unspecified site; Z86.73 Personal history of transient ischemic attack (TIA), and cerebral infarction without residual deficits; Z79.82 Long term (current) use of aspirin; J84.89 Other specified interstitial pulmonary diseases; M32.9 Systemic lupus erythematosus, unspecified; I50.32 Chronic diastolic (congestive) heart failure; R06.00 Dyspnea, unspecified; N39.0 Urinary tract infection, site not specified
CPT/HCPCS: 36415; 71010-TC; 76775-TC; 80048; 80053; 81003; 81015; 82550; 83605; 83735; 83880; 84100; 84484; 85025; 85610; 87086; 87186; 93005; 93010; 93306-TC; 99285-25; G0378

== ENCOUNTER 2018-04-03 02:42 | Observation (INO) | payer OTHER ==
[2018-04-03 02:51] VITALS: BMI 27.5
--- NOTE | 2018-04-03 02:59 | PDOC ---
History of Present Illness - General Chief Complaint: Pain, Acute Stated Complaint: FALL Time Seen by Provider: 04/03/18 02:59 - History of Present Illness Initial Comments: 04/03/18 05:03 The patient is an 83 year old female with a history of HTN, Thyroid Disease who presents for evaluation following an unwitnessed fall. The patient is accompanied by family who assists with providing the history. They report that the patient had an unwitnessed fall earlier this morning with unclear head trauma. The patient states that she does not remember the fall nor how she fell. The patient's family noted that the patient was appearing more altered prior to her fall, although she has returned to her baseline. The patient otherwise denies fevers, chills, SOB, chest pain, nausea, vomiting, abdominal pain, or changes with urination or bowel movements. Past History - Past Medical History Allergies/Adverse Reactions: Allergies Allergy/AdvReac Type Severity Reaction Status Date / Time No Known Allergies Allergy Unverified 01/16/17 15:43 Home Medications: Ambulatory Orders Aspirin [ASA -] 81 mg PO DAILY 05/14/16 Diltiazem [Cardizem -] 180 mg PO BID 05/14/16 Donepezil HCl 5 mg PO HS 05/14/16 Furosemide 60 mg PO DAILY 05/14/16 Hydralazine HCl 50 mg PO TID 05/14/16 Isosorbide Mononitrate [Imdur -] 60 mg PO BID 05/14/16 Levothyroxine [Synthroid -] 50 mcg PO DAILY 05/14/16 Losartan Potassium 100 mg PO DAILY 05/14/16 Hydroxychloroquine So4 [Plaquenil -] 200 mg PO DAILY 01/16/17 Risedronate Sodium 150 mg PO MONTHLY 01/16/17 Anemia: No Asthma: No Cancer: No Cardiac Disorders: No CVA: No COPD: No CHF: No Dementia: No Diabetes: No GI Disorders: No Disorders: No HTN: Yes Hypercholesterolemia: No Liver Disease: No Seizures: No Thyroid Disease: Yes Lung CA: No (interstitial lung disease) - Immunization History Immunization Up to Date: Yes - Suicide/Smoking/Psychosocial Hx Smoking History: Never smoked Have you smoked in the past 12 months: No Information on smoking cessation initiated: No Hx Alcohol Use: No Drug/Substance Use Hx: No Substance Use Type: None Review of Systems - Review of Systems Comments:: 04/03/18 05:19 Constitutional: No fevers, chills, fatigue, malaise HEENT: No Rhinorrhea, nasal congestion, visual changes Cardiovascular: Syncope. No chest pain, palpitations, lightheadedness Respiratory: No Cough, SOB, Hemoptysis, Gastrointestinal: No Abdominal pain, Nausea, Vomiting, Constipation, Diarrhea, Melena Genitourinary: No Dysuria, Frequency, Urgency, Hesitancy, Hematuria, Flank pain Musculoskeletal: No Myalgia, arthralgia Skin: No rashes, itching, bruising, pallor Neurologic: No Headache, Dizziness, Numbness, Weakness, or Tingling Psychiatric: No Hallucinations. No SI or HI *Physical Exam - Vital Signs Last Vital Signs Temp Pulse Resp BP Pulse Ox 98.7 F 64 18 154/88 100 04/03/18 02:44 04/03/18 02:44 04/03/18 02:44 04/03/18 02:44 04/03/18 02:44 - Physical Exam Comments: 04/03/18 05:19 General Appearance: Nourished. No Apparent Distress HEENT: No Pharyngeal Erythema, Tonsillar Exudate, Tonsillar Erythema Neck: No Cervical Lymphadenopathy Respiratory/Chest: Lungs Clear, Normal Breath Sounds. No Crackles, Rales, Rhonchi, Wheezing Cardiovascular: Regular Rhythm, Regular Rate. 2/6 Systolic murmur noted on exam. No Gallops, Rubs Gastrointestinal/Abdominal: Normal Bowel Sounds, Soft. No Guarding, Rebound, Tenderness Musculoskeletal: No CVA Tenderness Extremity: Normal Capillary Refill Integumentary: Normal Color, Dry, Warm Neurologic: Oriented x2, Alert, Normal Mood/Affect, Normal Response, Heart Score/ECG Review #1 ECG reviewed & interpreted by me at: 05:21 General ECG Interpretation: Sinus Rhythm, Normal Rate, Normal Intervals, No acute ischemic changes ED Treatment Course - LABORATORY CBC & Chemistry Diagram: 04/03/18 03:32 04/03/18 03:32 Medical Decision Making - Medical Decision Making 04/03/18 05:21 The patient is an 83 year old female with a history of HTN, Thyroid Disease who presents for evaluation following an unwitnessed fall. The patient is accompanied by family who assists with providing the history. Differential includes but is not limited to: Intracranial process, UTI, ACS, Infectious, Metabolic Derangement. Given the patient's history and physical exam, we will obtain a cbc, cmp, troponin, ua, urine culture, chest plain film, ekg, head and cervical ct and knee plain film to evaluate further. We will continue to monitor and reassess while here in the ED. 04/03/18 06:41 CBC, cmp, troponin are unremarkable. Chest plain film is unchanged. Head and cervical ct do not show any acute process as preliminarily read by our regulatory services consultant radiologist. Knee plain film demonstrates osteoarthritic findings. Given the patient's reported syncope, we believe she requires observation admission for further monitoring. We discussed the case with the admitting team who accepted the patient for admission. *DC/Admit/Observation/Transfer Diagnosis at time of Disposition: Syncope Qualifiers: Syncope type: unspecified Qualified Code(s): R55 - Syncope and collapse - Discharge Dispostion Condition at time of disposition: Stable Decision to Admit order: Yes - Referrals Referrals: Nils Voss MD [Primary Care Provider] - - Patient Instructions - Post Discharge Activity
--- NOTE | 2018-04-03 03:31 | PDOC ---
Attending Attestation - Resident Resident Name: Adrien Craig - ED Attending Attestation I have performed the following: I have examined & evaluated the patient, The case was reviewed & discussed with the resident, I agree w/resident's findings & plan, Exceptions are as noted - HPI HPI: 04/03/18 06:48 83-year-old female with a history of hypertension, dementia, thyroid disease presents to the emergency Department after an unwitnessed fall at home. The patient is a poor historian, however family member reports that the patient was acting confused. Patient's family member states they heard a thud and went up and found the patient on the ground awake. It's unknown if she lost consciousness or hit her head as patient cannot remember. Not on AC - Physicial Exam PE: 04/03/18 05:31 agree with resident exam - Medical Decision Making 04/03/18 06:50 83-year-old female with a history of hypertension, dementia, thyroid disorder to the emergency department with an unwitnessed fall and possible syncope. Vitals, exam, EKG unremarkable. Labs within normal limits. CT head with no acute findings, however with dilated ventricles and possible normal pressure hydrocephalus. Patient has been admitted for monitoring and further management. Heart Score/ECG Review #1 04/03/18 05:32 Twelve-lead EKG was performed and reviewed by me. Sinus rhythm, rate 70 to. Normal axis. No ST elevations. T wave flattening in leads 1, 2, 3, aVF, V6. Biphasic T waves in V3 to V5.When compared to EKG from January 2017, no significant changes.
[2018-04-03 03:53] LABS: BASO % 1.2 % (0-2.0); HEMATOCRIT 31.4 % (32.4-45.2); HEMOGLOBIN 10.9 GM/dL (10.7-15.3); MCH 27.7 pg (25.7-33.7); MCHC 34.6 g/dl (32.0-36.0); MEAN CELL VOLUME 79.9 fl (80-96); MEAN PLT VOLUME 8.8 fl (7.5-11.1); MONO % 9.5 % (3.8-10.2); NEUT % 72.3 % (42.8-82.8); PLATELET COUNT 201 K/MM3 (134-434); RBC 3.94 M/mm3 (3.60-5.2); RDW 20.1 % (11.6-15.6); WHITE BLOOD COUNT 8.2 K/mm3 (4.0-10.0)
[2018-04-03 04:23] LABS: ALBUMIN 3.4 g/dl (3.4-5.0); ALK PHOS 91 U/L (45-117); ANION GAP 9 MMOL/L (8-16); BILIRUBIN,TOTAL 0.5 mg/dL (0.2-1); BLOOD UREA NITROGEN 41 mg/dL (7-18); CHLORIDE 107 mmol/L (98-107); CO2 27 mmol/L (21-32); CREATININE 1.3 mg/dL (0.55-1.3); GLUCOSE,RANDOM 90 mg/dL (74-106); SGOT/AST 33 U/L (15-37); SGPT/ALT 22 U/L (13-61); SODIUM 142 mmol/L (136-145); TOT PROT 9.3 g/dl (6.4-8.2)
[2018-04-03 08:03] LABS: URINE APPEARANCE CLEAR; URINE BILIRUBIN NEGATIVE (<2.0 mg/dL); URINE COLOR LTYELLOW; URINE GLUCOSE (UA) NEGATIVE (NEGATIVE); URINE KETONE NEGATIVE (NEGATIVE); URINE LEUK ESTERASE NEGATIVE (NEGATIVE); URINE NITRITE NEGATIVE (NEGATIVE); URINE PROTEIN NEGATIVE (NEGATIVE); URINE UROBILINOGEN NEGATIVE mg/dL (0.2-1.0)
--- NOTE | 2018-04-03 08:06 | EKG ---
Test Reason : Blood Pressure : / mmHG Vent. Rate : 072 BPM Atrial Rate : 072 BPM P-R Int : 162 ms QRS Dur : 100 ms QT Int : 418 ms P-R-T Axes : -06 -27 052 degrees QTc Int : 457 ms SINUS RHYTHM WITH PREMATURE ATRIAL COMPLEXES VOLTAGE CRITERIA FOR LEFT VENTRICULAR HYPERTROPHY NONSPECIFIC T WAVE ABNORMALITY ABNORMAL ECG WHEN COMPARED WITH ECG OF 16-JAN-2017 16:00, NO SIGNIFICANT CHANGE WAS FOUND Confirmed by JOSE ALBERTO MINAYA MD ([id number]) on 04/03/2018 8:05:49 AM Referred By: Confirmed By:JOSE ALBERTO MINAYA MD
--- NOTE | 2018-04-03 10:22 | CONSULT ---
Consult - text type - Consultation Consultation Note: Neurology History of Present Illness 83 year old female with a history of HTN, Thyroid Disease who presented for reported unwitnessed fall. The patient was reportedly accompanied by family who assisted and provided history. They reported that the patient had an unwitnessed fall earlier the morning of admission with possible head trauma. The patient stated that she does not remember the fall nor how she fell. The patient's family noted that the patient was appearing more altered prior to her fall, although she had returned to her baseline. She completed a noncontrast head CT which I reviewed in detail and did not show any acute abnormalities. she also completed CT of cervical spine which did not show any significant fractures or dislocations. During my evaluation, she was completing an echo and is being evaluated for syncopal workup. She had similar presentation in the past and had seen her before. She had even completed MRI of the brain previously which did not show acute changes. She does not have any focal deficits although she does have some confusion regarding location (is on Aricept for cognitive impairment) and I would continue medical optimization. Past History - Past Medical History Allergies/Adverse Reactions: Allergies Allergy/AdvReac Type Severity Reaction Status Date / Time No Known Allergies Allergy Unverified 01/16/17 15:43 Home Medications: Ambulatory Orders Aspirin [ASA -] 81 mg PO DAILY 05/14/16 Diltiazem [Cardizem -] 180 mg PO BID 05/14/16 Donepezil HCl 5 mg PO HS 05/14/16 Furosemide 60 mg PO DAILY 05/14/16 Hydralazine HCl 50 mg PO TID 05/14/16 Isosorbide Mononitrate [Imdur -] 60 mg PO BID 05/14/16 Levothyroxine [Synthroid -] 50 mcg PO DAILY 05/14/16 Losartan Potassium 100 mg PO DAILY 05/14/16 Hydroxychloroquine So4 [Plaquenil -] 200 mg PO DAILY 01/16/17 Risedronate Sodium 150 mg PO MONTHLY 01/16/17 Anemia: No Asthma: No Cancer: No Cardiac Disorders: No CVA: No COPD: No CHF: No Dementia: No Diabetes: No GI Disorders: No Disorders: No HTN: Yes Hypercholesterolemia: No Liver Disease: No Seizures: No Thyroid Disease: Yes Lung CA: No (interstitial lung disease) - Immunization History Immunization Up to Date: Yes - Suicide/Smoking/Psychosocial Hx Smoking History: Never smoked Have you smoked in the past 12 months: No Information on smoking cessation initiated: No Hx Alcohol Use: No Drug/Substance Use Hx: No Substance Use Type: None Review of Systems Constitutional: No fevers, chills, fatigue, malaise HEENT: No Rhinorrhea, nasal congestion, visual changes Cardiovascular: Syncope. No chest pain, palpitations, lightheadedness Respiratory: No Cough, SOB, Hemoptysis, Gastrointestinal: No Abdominal pain, Nausea, Vomiting, Constipation, Diarrhea, Melena Genitourinary: No Dysuria, Frequency, Urgency, Hesitancy, Hematuria, Flank pain Musculoskeletal: No Myalgia, arthralgia Skin: No rashes, itching, bruising, pallor Neurologic: No Headache, Dizziness, Numbness, Weakness, or Tingling Psychiatric: No Hallucinations. No SI or HI *Physical Exam Vital Signs Period Temp Pulse Resp BP Sys/Negron Pulse Ox Last 24 Hr 98.7 F 64 18-18 154/88 100-100 General Appearance: Nourished. No Apparent Distress HEENT: No Pharyngeal Erythema, Tonsillar Exudate, Tonsillar Erythema Neck: No Cervical Lymphadenopathy Respiratory/Chest: Lungs Clear, Normal Breath Sounds. No Crackles, Rales, Rhonchi, Wheezing Cardiovascular: Regular Rhythm, Regular Rate. 2/6 Systolic murmur noted on exam. No Gallops, Rubs Gastrointestinal/Abdominal: Normal Bowel Sounds, Soft. No Guarding, Rebound, Tenderness Musculoskeletal: No CVA Tenderness Extremity: Normal Capillary Refill Integumentary: Normal Color, Dry, Warm Neurologic: Awake, alert, interactive, does not know location, CN intact, strenght grossly symmetric and equal, sensory intact, gait deferred CBCD WBC 8.2 K/mm3 (4.0-10.0) 04/03/18 03:32 RBC 3.94 M/mm3 (3.60-5.2) 04/03/18 03:32 Hgb 10.9 GM/dL (10.7-15.3) 04/03/18 03:32 Hct 31.4 % (32.4-45.2) L 04/03/18 03:32 MCV 79.9 fl (80-96) L 04/03/18 03:32 MCHC 34.6 g/dl (32.0-36.0) 04/03/18 03:32 RDW 20.1 % (11.6-15.6) H 04/03/18 03:32 Plt Count 201 K/MM3 (134-434) D 04/03/18 03:32 MPV 8.8 fl (7.5-11.1) 04/03/18 03:32 CMP Sodium 142 mmol/L (136-145) 04/03/18 03:32 Potassium 4.0 mmol/L (3.5-5.1) 04/03/18 03:32 Chloride 107 mmol/L (98-107) 04/03/18 03:32 Carbon Dioxide 27 mmol/L (21-32) 04/03/18 03:32 Anion Gap 9 MMOL/L (8-16) 04/03/18 03:32 BUN 41 mg/dL (7-18) H 04/03/18 03:32 Creatinine 1.3 mg/dL (0.55-1.3) 04/03/18 03:32 Creat Clearance w eGFR 38.93 (>60) 04/03/18 03:32 Random Glucose 90 mg/dL (74-106) 04/03/18 03:32 Calcium 9.0 mg/dL (8.5-10.1) 04/03/18 03:32 Total Bilirubin 0.5 mg/dL (0.2-1) 04/03/18 03:32 AST 33 U/L (15-37) 04/03/18 03:32 ALT 22 U/L (13-61) 04/03/18 03:32 Alkaline Phosphatase 91 U/L (45-117) 04/03/18 03:32 Total Protein 9.3 g/dl (6.4-8.2) H 04/03/18 03:32 Albumin 3.4 g/dl (3.4-5.0) 04/03/18 03:32 CARDIAC ENZYMES Creatine Kinase 440 IU/L (26-192) H 04/03/18 03:32 Troponin I < 0.02 ng/ml (0.00-0.05) 04/03/18 03:[address] C spine reviewed Plan: 83 year old female with a history of HTN, Thyroid Disease who presented for reported unwitnessed fall. The patient was reportedly accompanied by family who assisted and provided history. They reported that the patient had an unwitnessed fall earlier the morning of admission with possible head trauma. The patient stated that she does not remember the fall nor how she fell. The patient's family noted that the patient was appearing more altered prior to her fall, although she had returned to her baseline. She completed a noncontrast head CT which I reviewed in detail and did not show any acute abnormalities. she also completed CT of cervical spine which did not show any significant fractures or dislocations. During my evaluation, she was completing an echo and is being evaluated for syncopal workup. She had similar presentation in the past and had seen her before. She had even completed MRI of the brain previously which did not show acute changes. She does not have any focal deficits although she does have some confusion regarding location (is on Aricept for cognitive impairment) and I would continue medical optimization. Continue aspirin 81 mg, monitor blood pressure, maintain normotensive range, cardiac evaluation, follow-up echo. No focal deficits to require further imaging of brain. Consider carotid Dopplers, hydration recommended, can continue Aricept at current dose for now. Fall precautions recommended.
--- NOTE | 2018-04-03 10:57 | HP ---
Admitting History and Physical - Primary Care Physician PCP: Nils Voss - Admission History of Present Illness: is an 83 year old female who was admitted for evaluation of unwitnessed fall. Pt unable to recall the fall. Upon speaking with daughter, she reports mom was found on the floor conscious by family member yesterday morning. Daughter denies mom to report any symptoms. She noticed mom's ambulation status has declined. Pt currently in bed in no acute distress, denies chest pain, sob, n/v/d, slurred speech, fever/chills, dysuria. History Source: Patient Limitations to Obtaining History: Poor Historian - Past Medical History OPERATING SYSTEM PROGRAMMER: Yes: TIA, Other (cognitive impairment) Cardiovascular: Yes: Aortic Stenosis, CHF, HTN, Murmur Pulmonary: Yes: Other (ILD) Heme/Onc: Yes: Anemia Musculoskeletal: Yes: Osteoarthritis Rheumatology: Yes: Lupus Endocrine: Yes: Hypothyroidism - Smoking History Smoking history: Never smoked Have you smoked in the past 12 months: No - Alcohol/Substance Use Hx Alcohol Use: No History of Substance Use: reports: None - Social History Usual Living Arrangement: Yes: With Child ADL: Family Assistance Occupation: former nurse's aide History of Recent Travel: No Home Medications - Allergies Allergies/Adverse Reactions: Allergies Allergy/AdvReac Type Severity Reaction Status Date / Time No Known Allergies Allergy Unverified 01/16/17 15:43 - Home Medications Home Medications: Ambulatory Orders Aspirin [ASA -] 81 mg PO DAILY 05/14/16 Diltiazem [Cardizem -] 180 mg PO BID 05/14/16 Donepezil HCl 5 mg PO HS 05/14/16 Furosemide 60 mg PO DAILY 05/14/16 Hydralazine HCl 50 mg PO TID 05/14/16 Isosorbide Mononitrate [Imdur -] 60 mg PO BID 05/14/16 Levothyroxine [Synthroid -] 50 mcg PO DAILY 05/14/16 Losartan Potassium 100 mg PO DAILY 05/14/16 Hydroxychloroquine So4 [Plaquenil -] 200 mg PO BID 01/16/17 Risedronate Sodium 150 mg PO MONTHLY 01/16/17 Family Disease History - Family Disease History Family History: Unable to Obtain (Mental Status- forgetful) Physical Examination Vital Signs: Vital Signs Temperature 98.7 F 04/03/18 02:44 Pulse Rate 72 09/21/18 07:15 Respiratory Rate 16 04/03/18 07:15 Blood Pressure 145/68 04/03/18 07:15 O2 Sat by Pulse Oximetry (%) 99 04/03/18 07:15 Constitutional: Yes: Well Nourished, No Distress Cardiovascular: Yes: Regular Rate and Rhythm, Murmur Respiratory: Yes: WNL, Regular, CTA Bilaterally. No: Stridor, Tachypnea Gastrointestinal: Yes: WNL, Normal Bowel Sounds, Soft. No: Distention, Tenderness Renal/: Yes: WNL Edema: Yes Edema: LLE: 1+, RLE: Trace Neurological: Yes: Alert, Confusion (intermittent) Psychiatric: Yes: WNL, Alert Labs: CBC, BMP 04/03/18 03:32 04/03/18 03:32 Imaging - Results Chest X-ray: Report Reviewed X-ray: Pending (knee) Cat Scan: Report Reviewed (head, cervical spine unremarkable) Ultrasound: Pending (carotid us) EKG: Report Reviewed (nsr) Problem List - Problems (1) Syncope Assessment/Plan: unwitnessed fall, found on the floor, pt unable to recall suspect possible mechanical or 2/2 dehydration/orthostatic hypotension cardiac echo without acute findings , trop neg UA neg carotid us pending orthostatic vs ordered tele monitoring PT- ambulated 15ft possible SNF placement Code(s): R55 - SYNCOPE AND COLLAPSE Qualifiers: Syncope type: unspecified Qualified Code(s): R55 - Syncope and collapse (2) RAMAN (acute kidney injury) Assessment/Plan: mild, pre renal IVF encourage po intake monitor Code(s): N17.9 - ACUTE KIDNEY FAILURE, UNSPECIFIED (3) Hypertension Assessment/Plan: controlled continue home meds Code(s): I10 - ESSENTIAL (PRIMARY) HYPERTENSION Qualifiers: Hypertension type: essential hypertension Qualified Code(s): I10 - Essential (primary) hypertension (4) Hypothyroid Assessment/Plan: stable continue synthroid outpt f/u Code(s): E03.9 - HYPOTHYROIDISM, UNSPECIFIED (5) CHF (congestive heart failure) Assessment/Plan: stable, minimal le edema on lasix 60mg at home d/c on 40mg lasix upon d/c cardiology consult appreciated Code(s): I50.9 - HEART FAILURE, UNSPECIFIED Qualifiers: Heart failure type: diastolic Heart failure chronicity: chronic Qualified Code(s): I50.32 - Chronic diastolic (congestive) heart failure (6) Aortic stenosis Assessment/Plan: stable on echo today continue cardiology f/u Code(s): I35.0 - NONRHEUMATIC AORTIC (VALVE) STENOSIS (7) Cognitive impairment Assessment/Plan: stable continue aricept neurology following Code(s): R41.89 - OTH SYMPTOMS AND SIGNS W COGNITIVE FUNCTIONS AND AWARENESS (8) Lupus Assessment/Plan: stable continue plaquenil bid outpt rheum f/u Code(s): L93.0 - DISCOID LUPUS ERYTHEMATOSUS (9) Anemia Assessment/Plan: h/h stable per outpt records, chronic continue iron supplements Code(s): D64.9 - ANEMIA, UNSPECIFIED Assessment/Plan Dispo: unsafe d/c home at the moment, pt ambulated 15 ft w/ PT. SNF placement
--- NOTE | 2018-04-03 11:07 | ECHO ---
Name: LADONNA SOLIS Exam:Adult Echocardiogram Study Date: 04/03/2018 08:46 AM Age: 83 yrs Reason For Study: SYNCOPE Height: 65 in Weight: 165 lb BSA: 1.8 m2 MMode/2D Measurements & Calculations IVSd: 0.89 cm Ao root diam: 2.5 cm LVIDd: 4.4 cm LA dimension: 3.3 cm LVIDs: 3.1 cm ACS: 1.4 cm LVPWd: 1.1 cm EDV(Teich): 86.9 ml LVOT diam: 2.1 cm ESV(Teich): 38.0 ml Doppler Measurements & Calculations MV E max henrik: 83.9 cm/sec Ao V2 max: 344.2 cm/sec MV A max henrik: 59.7 cm/sec Ao max P.4 mmHg MV E/A: 1.4 Ao V2 mean: 232.5 cm/sec MV dec time: 0.21 sec Ao mean P.2 mmHg Ao V2 VTI: 86.0 cm MARS(I,D): 1.3 cm2 AI P1/2t: 414.9 msec MARS(V,D): 1.3 cm2 AI max henrik: 532.9 cm/sec LV V1 max P.9 mmHg AI max P.6 mmHg LV V1 mean P.5 mmHg AI dec slope: 376.2 cm/sec2 LV V1 max: 131.8 cm/sec LV V1 mean: 87.7 cm/sec LV V1 VTI: 34.0 cm SV(LVOT): 112.2 ml TR max henrik: 287.8 cm/sec TR max P.4 mmHg Med Peak E' Henrik: 5.8 cm/sec Med E/e': 14.4 Lat Peak E' Henrik: 9.4 cm/sec Lat E/e': 8.9 Left Ventricle Upper septal hypertrophy (sigmoid septum), normal variant. The left ventricle is hyperdynamic. Ejecti on Fraction = 60-65%. Right Ventricle The right ventricle is normal in size and function. Atria The left atrium is moderately dilated. Mitral Valve There is moderate mitral valve thickening. There is moderate mitral annular calcification. There is n o mitral valve stenosis. There is trace to mild mitral regurgitation. Tricuspid Valve The tricuspid valve is normal in structure and function. There is moderate tricuspid regurgitation. R ight ventricular systolic pressure is elevated at 30-40mmHg. Aortic Valve There is moderate to severe aortic sclerosis.;. Moderate to severe valvular aortic stenosis. Mild to moderate aortic regurgitation. Pulmonic Valve The pulmonic valve is not well seen, but is grossly normal. There is no pulmonic valvular stenosis. M ild pulmonic valvular regurgitation. Great Vessels The aortic root is normal size. Pericardium/Pleura There is no pericardial effusion. Interpretation Summary Upper septal hypertrophy (sigmoid septum), normal variant. The left ventricle is hyperdynamic. Ejection Fraction = 60-65%. The right ventricle is normal in size and function. The left atrium is moderately dilated. There is moderate mitral valve thickening. There is moderate mitral annular calcification. There is trace to mild mitral regurgitation. There is moderate tricuspid regurgitation. Right ventricular systolic pressure is elevated at 30-40mmHg. Moderate to severe valvular aortic stenosis. Mild to moderate aortic regurgitation. Mild pulmonic valvular regurgitation. There is no pericardial effusion. MD Sae Wyman 04/03/2018 11:07 AM
[2018-04-03] MEDS ORDERED: SODIUM CHLORIDE 1,000 ML IV SCH (11:15)
--- NOTE | 2018-04-03 11:26 | CON.CARD ---
Cardiology Consult (text) - Consultation Consultation Note: cc: unwitnessed fall hpi: 83 f hx htn, hypothyroid, sle, , dchf/le edema, tia 2016, dementia here with unwitnessed fall. Pt poor historian, does not know what happened or why she is in hospital. Per charts she was at home and family heard a thud and went to her room and found her awake on floor. Pt feels well now. No cp, sob, palps, dizzy, pnd, orthopnea. Mild chronic le edema. Sees me for cardio. pmh: per hpi psh: nc social: no tob fam: no premature cad, scd ros: per hpi; no fever, nvd, cough, nasal congestion, gillespie, vision changes, gib, hematuria, muscle pain meds: Current Medications Generic Name Dose Route Start Last Admin Trade Name Freq PRN Reason Stop Dose Admin Aspirin 81 mg 04/04/18 10:00 Asa - PO DAILY FRANNY Diltiazem HCl 180 mg 04/03/18 11:22 Cardizem - PO BID FRANNY Donepezil HCl 5 mg 04/03/18 22:00 Aricept - PO HS FRANNY Sodium Chloride 1,000 mls @ 50 mls/hr 04/03/18 11:15 Normal Saline - IV 04/04/18 11:09 ASDIR FRANNY Levothyroxine Sodium 50 mcg 04/04/18 07:00 Synthroid - PO ACBK FRANNY pe: Vital Signs Period Temp Pulse Resp BP Sys/Negron Pulse Ox Last 24 Hr 98.7 F 64-72 16-18 145-154/68-88 99-100 nad no jvd rrr s1s2 +as murmur, no rg cta bl nl eff alert awake appropriate trace le edema, no c/c abd nt nd pos bs no jaundice diaphoresis pos dp pt no carotid bruits Laboratory Last Values WBC 8.2 K/mm3 (4.0-10.0) 04/03/18 03:32 RBC 3.94 M/mm3 (3.60-5.2) 04/03/18 03:32 Hgb 10.9 GM/dL (10.7-15.3) 04/03/18 03:32 Hct 31.4 % (32.4-45.2) L 04/03/18 03:32 MCV 79.9 fl (80-96) L 04/03/18 03:32 MCH 27.7 pg (25.7-33.7) 04/03/18 03:32 MCHC 34.6 g/dl (32.0-36.0) 04/03/18 03:32 RDW 20.1 % (11.6-15.6) H 04/03/18 03:32 Plt Count 201 K/MM3 (134-434) D 04/03/18 03:32 MPV 8.8 fl (7.5-11.1) 04/03/18 03:32 Absolute Neuts (auto) 5.9 K/mm3 (1.5-8.0) 04/03/18 03:32 Neutrophils % 72.3 % (42.8-82.8) D 04/03/18 03:32 Lymphocytes % 13.0 % (8-40) D 04/03/18 03:32 Monocytes % 9.5 % (3.8-10.2) 04/03/18 03:32 Eosinophils % 4.0 % (0-4.5) 04/03/18 03:32 Basophils % 1.2 % (0-2.0) 04/03/18 03:32 Nucleated RBC % 0 % (0-0) 04/03/18 03:32 Sodium 142 mmol/L (136-145) 04/03/18 03:32 Potassium 4.0 mmol/L (3.5-5.1) 04/03/18 03:32 Chloride 107 mmol/L (98-107) 04/03/18 03:32 Carbon Dioxide 27 mmol/L (21-32) 04/03/18 03:32 Anion Gap 9 MMOL/L (8-16) 04/03/18 03:32 BUN 41 mg/dL (7-18) H 04/03/18 03:32 Creatinine 1.3 mg/dL (0.55-1.3) 04/03/18 03:32 Creat Clearance w eGFR 38.93 (>60) 04/03/18 03:32 Random Glucose 90 mg/dL (74-106) 04/03/18 03:32 Calcium 9.0 mg/dL (8.5-10.1) 04/03/18 03:32 Total Bilirubin 0.5 mg/dL (0.2-1) 04/03/18 03:32 AST 33 U/L (15-37) 04/03/18 03:32 ALT 22 U/L (13-61) 04/03/18 03:32 Alkaline Phosphatase 91 U/L (45-117) 04/03/18 03:32 Creatine Kinase 440 IU/L (26-192) H 04/03/18 03:32 Creatine Kinase Index 0.7 % (0.0-5.0) 04/03/18 03:32 CK-MB (CK-2) 3.3 ng/mL (0.5-3.6) 04/03/18 03:32 Troponin I < 0.02 ng/ml (0.00-0.05) 04/03/18 03:32 Total Protein 9.3 g/dl (6.4-8.2) H 04/03/18 03:32 Albumin 3.4 g/dl (3.4-5.0) 04/03/18 03:32 Urine Color Ltyellow 04/03/18 07:50 Urine Appearance Clear 04/03/18 07:50 Urine pH 6.0 (5.0-8.0) 04/03/18 07:50 Ur Specific [place] 1.017 (1.001-1.035) 04/03/18 07:50 Urine Protein Negative (NEGATIVE) 04/03/18 07:50 Urine Glucose (UA) Negative (NEGATIVE) 04/03/18 07:50 Urine Ketones Negative (NEGATIVE) 04/03/18 07:50 Urine Blood Negative (NEGATIVE) 04/03/18 07:50 Urine Nitrite Negative (NEGATIVE) 04/03/18 07:50 Urine Bilirubin Negative (<2.0 mg/dL) 04/03/18 07:50 Urine Urobilinogen Negative mg/dL (0.2-1.0) 04/03/18 07:50 Ur Leukocyte Esterase Negative (NEGATIVE) 04/03/18 07:50 ecg: sr, pacs, nl intervals, no ischemic changes cxr: no chf echo 03/2016: nl lv/rv, mild lae, mild ar, mod , mac, mild tr, mild phtn echo 05/2016: nl lv/rv, mod donte, rvsp 40-50, mod tr, mod as, mild-mod ar, mild- mod pr echo 03/2018: nl lv/rv, mod lae, mild pr, mod tr, rvsp 30-40, mod ar, mod-sev as (gradients and valve area c/w mod ) event monitor (2 weeks) 03/2016: benign, occ pacs, pvcs carotids 01/2015: small plaque, no sig stenosis carotids 05/2016: small plaque, no sig stenosis mibi 02/2015: no ischemia a/p: 83 f hx htn, hypothyroid, sle, , dchf/le edema, tia 2015, dementia here with unwitnessed fall. fall: -no details available, possibly mechanical -check orthostatics, monitor tele -echo today no sig change from prior -no signs acs or chf -PT eval htn: -cont home meds : -05/2016 echo with moderate , current echo reports mod-sev but gradients and valve area consistent with moderate and similar to prior echo from 2015, so no significant change. Outpt monitoring. chronic diastolic chf, le edema: -stable, no gross vol overload. was on lasix po 60 qd at home but here with mild chery, resume lasix at lower dose 40 qd when dc
[2018-04-03] MEDS: hydrALAZINE HCL 50 MG TABLET (FP) PO SCH ×2 (15:33→21:00)
[2018-04-03] MEDS: ISOSORBIDE MONONITRATE 60 MG TAB.SR.24H (FP) PO SCH (20:59)
[2018-04-03] MEDS: DONEPEZIL HCL 5 MG TABLET (FP) PO SCH (21:00)
[2018-04-04] MEDS: hydrALAZINE HCL 50 MG TABLET (FP) PO SCH ×3 (05:17→21:24)
[2018-04-04] MEDS: LEVOTHYROXINE NA 50 MCG TABLET (FP) PO SCH (06:18)
[2018-04-04] MEDS ORDERED: PT OWN MED DRAWER 7, Y5N ONE (09:17)
[2018-04-04] MEDS: HYDROXYCHLOROQUINE SO4 200 MG TABLET (FP) PO SCH (09:18)
[2018-04-04] MEDS: ISOSORBIDE MONONITRATE 60 MG TAB.SR.24H (FP) PO SCH ×2 (09:18→21:24)
[2018-04-04] MEDS: ASPIRIN 81 MG CHEWABLE TABLETS PO SCH (09:18)
[2018-04-04] MEDS: LOSARTAN POTASSIUM 50 MG TABLET (FP) PO SCH (09:18)
--- NOTE | 2018-04-04 09:54 | PN ---
Progress Note (short form) - Note Progress Note: cc: unwitnessed fall s: no cp, palps, dizzy, dyspnea. stable edema. o: Current Medications Aspirin (Asa -) 81 mg PO DAILY [facility] Last Admin: 04/04/18 09:18 Dose: 81 mg Diltiazem HCl (Cardizem Cd -) 180 mg PO BID [facility] Last Admin: 04/04/18 09:18 Dose: 180 mg Donepezil HCl (Aricept -) 5 mg PO HS [facility] Last Admin: 04/03/18 21:00 Dose: 5 mg Hydralazine HCl (Apresoline -) 50 mg PO TID [facility] Last Admin: 04/04/18 05:17 Dose: 50 mg Hydroxychloroquine Sulfate (Plaquenil -) 200 mg PO DAILY [facility] Last Admin: 04/04/18 09:18 Dose: 200 mg Sodium Chloride (Normal Saline -) 1,000 mls @ 50 mls/hr IV ASDIR [facility] Stop: 04/04/18 11:09 Last Admin: 04/03/18 15:36 Dose: 50 mls/hr Isosorbide Mononitrate (Imdur -) 60 mg PO BID [facility] Last Admin: 04/04/18 09:18 Dose: 60 mg Levothyroxine Sodium (Synthroid -) 50 mcg PO ACBK [facility] Last Admin: 04/04/18 06:18 Dose: 50 mcg Losartan Potassium (Cozaar -) 100 mg PO DAILY [facility] Last Admin: 04/04/18 09:18 Dose: 100 mg Vital Signs Period Temp Pulse Resp BP Sys/Negron Pulse Ox Last 24 Hr 98.3 F-99.1 F 58-70 16-18 141-179/73-85 98 nad no jvd rrr s1s2 +as murmur, no rg cta bl nl eff alert awake appropriate trace le edema, no c/c abd nt nd pos bs no jaundice diaphoresis pos dp pt no carotid bruits Laboratory Last Values WBC 8.2 K/mm3 (4.0-10.0) 04/03/18 03:32 RBC 3.94 M/mm3 (3.60-5.2) 04/03/18 03:32 Hgb 10.9 GM/dL (10.7-15.3) 04/03/18 03:32 Hct 31.4 % (32.4-45.2) L 04/03/18 03:32 MCV 79.9 fl (80-96) L 04/03/18 03:32 MCH 27.7 pg (25.7-33.7) 04/03/18 03:32 MCHC 34.6 g/dl (32.0-36.0) 04/03/18 03:32 RDW 20.1 % (11.6-15.6) H 04/03/18 03:32 Plt Count 201 K/MM3 (134-434) D 04/03/18 03:32 MPV 8.8 fl (7.5-11.1) 04/03/18 03:32 Absolute Neuts (auto) 5.9 K/mm3 (1.5-8.0) 04/03/18 03:32 Neutrophils % 72.3 % (42.8-82.8) D 04/03/18 03:32 Lymphocytes % 13.0 % (8-40) D 04/03/18 03:32 Monocytes % 9.5 % (3.8-10.2) 04/03/18 03:32 Eosinophils % 4.0 % (0-4.5) 04/03/18 03:32 Basophils % 1.2 % (0-2.0) 04/03/18 03:32 Nucleated RBC % 0 % (0-0) 04/03/18 03:32 Sodium 142 mmol/L (136-145) 04/03/18 03:32 Potassium 4.0 mmol/L (3.5-5.1) 04/03/18 03:32 Chloride 107 mmol/L (98-107) 04/03/18 03:32 Carbon Dioxide 27 mmol/L (21-32) 04/03/18 03:32 Anion Gap 9 MMOL/L (8-16) 04/03/18 03:32 BUN 41 mg/dL (7-18) H 04/03/18 03:32 Creatinine 1.3 mg/dL (0.55-1.3) 04/03/18 03:32 Creat Clearance w eGFR 38.93 (>60) 04/03/18 03:32 Random Glucose 90 mg/dL (74-106) 04/03/18 03:32 Calcium 9.0 mg/dL (8.5-10.1) 04/03/18 03:32 Total Bilirubin 0.5 mg/dL (0.2-1) 04/03/18 03:32 AST 33 U/L (15-37) 04/03/18 03:32 ALT 22 U/L (13-61) 04/03/18 03:32 Alkaline Phosphatase 91 U/L (45-117) 04/03/18 03:32 Creatine Kinase 440 IU/L (26-192) H 04/03/18 03:32 Creatine Kinase Index 0.7 % (0.0-5.0) 04/03/18 03:32 CK-MB (CK-2) 3.3 ng/mL (0.5-3.6) 04/03/18 03:32 Troponin I < 0.02 ng/ml (0.00-0.05) 04/03/18 03:32 Total Protein 9.3 g/dl (6.4-8.2) H 04/03/18 03:32 Albumin 3.4 g/dl (3.4-5.0) 04/03/18 03:32 Urine Color Ltyellow 04/03/18 07:50 Urine Appearance Clear 04/03/18 07:50 Urine pH 6.0 (5.0-8.0) 04/03/18 07:50 Ur Specific [place] 1.017 (1.001-1.035) 04/03/18 07:50 Urine Protein Negative (NEGATIVE) 04/03/18 07:50 Urine Glucose (UA) Negative (NEGATIVE) 04/03/18 07:50 Urine Ketones Negative (NEGATIVE) 04/03/18 07:50 Urine Blood Negative (NEGATIVE) 04/03/18 07:50 Urine Nitrite Negative (NEGATIVE) 04/03/18 07:50 Urine Bilirubin Negative (<2.0 mg/dL) 04/03/18 07:50 Urine Urobilinogen Negative mg/dL (0.2-1.0) 04/03/18 07:50 Ur Leukocyte Esterase Negative (NEGATIVE) 04/03/18 07:50 ecg: sr, pacs, nl intervals, no ischemic changes cxr: no chf echo 03/2016: nl lv/rv, mild lae, mild ar, mod , mac, mild tr, mild phtn echo 05/2016: nl lv/rv, mod donte, rvsp 40-50, mod tr, mod as, mild-mod ar, mild- mod pr echo 03/2018: nl lv/rv, mod lae, mild pr, mod tr, rvsp 30-40, mod ar, mod-sev as (gradients and valve area c/w mod ) event monitor (2 weeks) 03/2016: benign, occ pacs, pvcs carotids 01/2015: small plaque, no sig stenosis carotids 05/2016: small plaque, no sig stenosis mibi 02/2015: no ischemia a/p: 83 f hx htn, hypothyroid, sle, , dchf/le edema, tia 2015, dementia here with unwitnessed fall. fall: -no details available, possibly mechanical -check orthostatics, monitoring on tele -echo unchanged from prior - carotid ultrasound report pending -no signs acs or chf -PT eval - stable from cardiac perspective htn: -cont home meds : -05/2016 echo with moderate , current echo reports mod-sev but gradients and valve area consistent with moderate and similar to prior echo from 2015, so no significant change. Outpt monitoring. chronic diastolic chf, le edema: -stable, no gross vol overload. was on lasix po 60 qd at home but here with mild chery, resume lasix at lower dose 40 qd when dc
--- NOTE | 2018-04-04 12:43 | PN ---
Progress Note, Physician Chief Complaint: Non new complaints History of Present Illness: 83 year old female H/O Dementia, HTN, CHF who was admitted for evaluation of unwitnessed fall. Pt unable to recall the fall. - Current Medication List Current Medications: Active Medications Aspirin (Asa -) 81 mg PO DAILY [facility] Last Admin: 04/04/18 09:18 Dose: 81 mg Diltiazem HCl (Cardizem Cd -) 180 mg PO BID [facility] Last Admin: 04/04/18 09:18 Dose: 180 mg Donepezil HCl (Aricept -) 5 mg PO HS [facility] Last Admin: 04/03/18 21:00 Dose: 5 mg Hydralazine HCl (Apresoline -) 50 mg PO TID [facility] Last Admin: 04/04/18 05:17 Dose: 50 mg Hydroxychloroquine Sulfate (Plaquenil -) 200 mg PO DAILY [facility] Last Admin: 04/04/18 09:18 Dose: 200 mg Isosorbide Mononitrate (Imdur -) 60 mg PO BID [facility] Last Admin: 04/04/18 09:18 Dose: 60 mg Levothyroxine Sodium (Synthroid -) 50 mcg PO ACBK [facility] Last Admin: 04/04/18 06:18 Dose: 50 mcg Losartan Potassium (Cozaar -) 100 mg PO DAILY [facility] Last Admin: 04/04/18 09:18 Dose: 100 mg - Objective Vital Signs: Vital Signs Temperature 98 F 04/04/18 10:00 Pulse Rate 70 04/04/18 10:00 Respiratory Rate 18 04/04/18 10:00 Blood Pressure 140/68 04/04/18 10:00 O2 Sat by Pulse Oximetry (%) 98 04/04/18 09:00 Constitutional: Well Nourished, No Distress HEENT: Mm moist, no anemia, PERRLA EOMI NECK: No JVd No bruit, no thyromegally , supple. Respiratory: Regular, CTA Bilaterally. No: Stridor, Tachypnea Cardiovascular: Regular Rate and Rhythm, SM in AA Gastrointestinal: Normal Bowel Sounds, Soft. No: Distention, Tenderness EXTERMITIES: No edema feet, Pulses +, No Claf tenderness Neurological: Alert, mild Demetia, non focal neuro exam Extremities: Yes: Calf Tenderness Peripheral Pulses WNL: Yes Labs: CBC, BMP 04/03/18 03:32 04/03/18 03:32 - ....Imaging Other: Report Reviewed (ECHO: mederate ) Problem List - Problems (1) Fall Assessment/Plan: Unwitnessed fall w/u for TIA/Syncope evaluated by neurology anfd cardiology, no acute St T changes, ECHO moderate , no arrhythmia on monitor Code(s): W19.XXXA - UNSPECIFIED FALL, INITIAL ENCOUNTER (2) Aortic stenosis Assessment/Plan: Moderate no significant hemodynamic abnormality unlikely cause for syncope Code(s): I35.0 - NONRHEUMATIC AORTIC (VALVE) STENOSIS (3) Hypertension Assessment/Plan: Well controlled cont all home meds Code(s): I10 - ESSENTIAL (PRIMARY) HYPERTENSION Qualifiers: Hypertension type: essential hypertension Qualified Code(s): I10 - Essential (primary) hypertension (4) Hypothyroid Assessment/Plan: On Levothyroxine TSH at target Code(s): E03.9 - HYPOTHYROIDISM, UNSPECIFIED (5) Lupus Assessment/Plan: On chloroquine Code(s): L93.0 - DISCOID LUPUS ERYTHEMATOSUS (6) Anemia Assessment/Plan: Chronic H/H stable Code(s): D64.9 - ANEMIA, UNSPECIFIED (7) Cognitive impairment Assessment/Plan: no acute psychosis or eli satble Code(s): R41.89 - OTH SYMPTOMS AND SIGNS W COGNITIVE FUNCTIONS AND AWARENESS
[2018-04-04 13:11] LABS: CHOLESTEROL 185 mg/dL (50-200); HDL CHOLESTEROL 87 mg/dL (40-60); TRIGLYCERIDES 34 mg/dL (0-150)
[2018-04-04] MEDS: DONEPEZIL HCL 5 MG TABLET (FP) PO SCH (21:25)
[2018-04-05] MEDS: hydrALAZINE HCL 50 MG TABLET (FP) PO SCH ×3 (06:08→21:23)
[2018-04-05] MEDS: LEVOTHYROXINE NA 50 MCG TABLET (FP) PO SCH (06:09)
[2018-04-05] MEDS ORDERED: PT OWN MED DRAWER 7, Y5N ONE (09:27)
[2018-04-05] MEDS: HYDROXYCHLOROQUINE SO4 200 MG TABLET (FP) PO SCH (09:44)
[2018-04-05] MEDS: LOSARTAN POTASSIUM 50 MG TABLET (FP) PO SCH (09:44)
[2018-04-05] MEDS: ASPIRIN 81 MG CHEWABLE TABLETS PO SCH (09:44)
[2018-04-05] MEDS: ISOSORBIDE MONONITRATE 60 MG TAB.SR.24H (FP) PO SCH ×2 (09:44→21:23)
--- NOTE | 2018-04-05 10:13 | PN ---
Progress Note (short form) - Note Progress Note: cc: unwitnessed fall s: no cp, palps, dizzy, dyspnea. stable edema. tele: sinus, PACs, PVCs o: Current Medications Aspirin (Asa -) 81 mg PO DAILY [facility] Last Admin: 04/05/18 09:44 Dose: 81 mg Diltiazem HCl (Cardizem Cd -) 180 mg PO BID [facility] Last Admin: 04/05/18 09:44 Dose: 180 mg Donepezil HCl (Aricept -) 5 mg PO HS [facility] Last Admin: 04/04/18 21:25 Dose: 5 mg Hydralazine HCl (Apresoline -) 50 mg PO TID [facility] Last Admin: 04/05/18 06:08 Dose: 50 mg Hydroxychloroquine Sulfate (Plaquenil -) 200 mg PO DAILY [facility] Last Admin: 04/05/18 09:44 Dose: 200 mg Isosorbide Mononitrate (Imdur -) 60 mg PO BID [facility] Last Admin: 04/05/18 09:44 Dose: 60 mg Levothyroxine Sodium (Synthroid -) 50 mcg PO ACBK [facility] Last Admin: 04/05/18 06:09 Dose: 50 mcg Losartan Potassium (Cozaar -) 100 mg PO DAILY [facility] Last Admin: 04/05/18 09:44 Dose: 100 mg Vital Signs Period Temp Pulse Resp BP Sys/Negron Pulse Ox Last 24 Hr 98.3 F-99.1 F 64-79 18-20 108-159/49-67 98 nad no jvd rrr s1s2 +as murmur, no rg cta bl nl eff alert awake appropriate trace le edema, no c/c abd nt nd pos bs no jaundice diaphoresis pos dp pt no carotid bruits ecg: sr, pacs, nl intervals, no ischemic changes cxr: no chf echo 03/2016: nl lv/rv, mild lae, mild ar, mod , mac, mild tr, mild phtn echo 05/2016: nl lv/rv, mod donte, rvsp 40-50, mod tr, mod as, mild-mod ar, mild- mod pr echo 03/2018: nl lv/rv, mod lae, mild pr, mod tr, rvsp 30-40, mod ar, mod-sev as (gradients and valve area c/w mod ) event monitor (2 weeks) 03/2016: benign, occ pacs, pvcs carotids 01/2015: small plaque, no sig stenosis carotids 05/2016: small plaque, no sig stenosis mibi 02/2015: no ischemia a/p: 83 f hx htn, hypothyroid, sle, , dchf/le edema, tia 2016, dementia here with unwitnessed fall. fall: -no details available, possibly mechanical -check orthostatics, monitoring on tele -echo unchanged from prior - carotid ultrasound report pending -no signs acs or chf -PT eval - stable from cardiac perspective htn: -cont home meds : -05/2016 echo with moderate , current echo reports mod-sev but gradients and valve area consistent with moderate and similar to prior echo from 2015, so no significant change. Outpt monitoring. chronic diastolic chf, le edema: -stable, no gross vol overload. was on lasix po 60 qd at home but here with mild chery, resume lasix at lower dose 40 qd when dc
--- NOTE | 2018-04-05 12:55 | PN ---
Progress Note, Physician Chief Complaint: Non new complaints History of Present Illness: 83 year old female H/O Dementia, HTN, CHF who was admitted for evaluation of unwitnessed fall. Pt unable to recall the fall. - Current Medication List Current Medications: Active Medications Aspirin (Asa -) 81 mg PO DAILY [facility] Last Admin: 04/05/18 09:44 Dose: 81 mg Diltiazem HCl (Cardizem Cd -) 180 mg PO BID [facility] Last Admin: 04/05/18 09:44 Dose: 180 mg Donepezil HCl (Aricept -) 5 mg PO HS [facility] Last Admin: 04/04/18 21:25 Dose: 5 mg Hydralazine HCl (Apresoline -) 50 mg PO TID [facility] Last Admin: 04/05/18 06:08 Dose: 50 mg Hydroxychloroquine Sulfate (Plaquenil -) 200 mg PO DAILY [facility] Last Admin: 04/05/18 09:44 Dose: 200 mg Isosorbide Mononitrate (Imdur -) 60 mg PO BID [facility] Last Admin: 04/05/18 09:44 Dose: 60 mg Levothyroxine Sodium (Synthroid -) 50 mcg PO ACBK [facility] Last Admin: 04/05/18 06:09 Dose: 50 mcg Losartan Potassium (Cozaar -) 100 mg PO DAILY [facility] Last Admin: 04/05/18 09:44 Dose: 100 mg - Objective Vital Signs: Vital Signs Temperature 98.5 F 04/05/18 05:46 Pulse Rate 64 04/05/18 05:46 Respiratory Rate 18 04/05/18 05:46 Blood Pressure 158/67 04/05/18 05:46 O2 Sat by Pulse Oximetry (%) 98 04/04/18 20:42 Constitutional: Well Nourished, No Distress HEENT: Mm moist, no anemia, PERRLA EOMI NECK: No JVd No bruit, no thyromegally , supple. Respiratory: Regular, CTA Bilaterally. No: Stridor, Tachypnea Cardiovascular: Regular Rate and Rhythm, SM in AA Gastrointestinal: Normal Bowel Sounds, Soft. No: Distention, Tenderness EXTERMITIES: No edema feet, Pulses +, No Claf tenderness Neurological: Alert, mild Dementia, non focal neuro exam Labs: CBC, BMP 04/03/18 03:32 04/03/18 03:32 Problem List - Problems (1) Fall Assessment/Plan: Unwitnessed fall w/u for TIA/Syncope evaluated by neurology anfd cardiology, no acute St T changes, ECHO moderate , no arrhythmia on monitor Code(s): W19.XXXA - UNSPECIFIED FALL, INITIAL ENCOUNTER (2) Aortic stenosis Assessment/Plan: Moderate no significant hemodynamic abnormality unlikely cause for syncope Code(s): I35.0 - NONRHEUMATIC AORTIC (VALVE) STENOSIS (3) Hypertension Assessment/Plan: Well controlled cont all home meds Code(s): I10 - ESSENTIAL (PRIMARY) HYPERTENSION Qualifiers: Hypertension type: essential hypertension Qualified Code(s): I10 - Essential (primary) hypertension (4) Hypothyroid Assessment/Plan: On Levothyroxine TSH at target Code(s): E03.9 - HYPOTHYROIDISM, UNSPECIFIED (5) Anemia Assessment/Plan: Chronic H/H stable Code(s): D64.9 - ANEMIA, UNSPECIFIED (6) Cognitive impairment Assessment/Plan: no acute psychosis or eli satble Code(s): R41.89 - OTH SYMPTOMS AND SIGNS W COGNITIVE FUNCTIONS AND AWARENESS (7) Lupus Assessment/Plan: On chloroquine Code(s): L93.0 - DISCOID LUPUS ERYTHEMATOSUS (8) RAMAN (acute kidney injury) Assessment/Plan: cont hydration improving Code(s): N17.9 - ACUTE KIDNEY FAILURE, UNSPECIFIED
[2018-04-05] MEDS: DONEPEZIL HCL 5 MG TABLET (FP) PO SCH (21:23)
[2018-04-06] MEDS: hydrALAZINE HCL 50 MG TABLET (FP) PO SCH ×3 (06:09→23:25)
[2018-04-06] MEDS: LEVOTHYROXINE NA 50 MCG TABLET (FP) PO SCH (06:46)
--- NOTE | 2018-04-06 09:30 | PN ---
Progress Note (short form) - Note Progress Note: Neurology History of Present Illness 83 year old female with a history of HTN, Thyroid Disease who presented for reported unwitnessed fall. The patient was reportedly accompanied by family who assisted and provided history. They reported that the patient had an unwitnessed fall earlier the morning of admission with possible head trauma. The patient stated that she does not remember the fall nor how she fell. The patient's family noted that the patient was appearing more altered prior to her fall, although she had returned to her baseline. She completed a noncontrast head CT which I reviewed in detail and did not show any acute abnormalities. she also completed CT of cervical spine which did not show any significant fractures or dislocations. She had similar presentation in the past and had seen her before. She had even completed MRI of the brain previously which did not show acute changes. She completed Carotid doppler which were reviewed and without high grade stenosis. Echo also completed, cardiology following, LV hyperdynamic, EF 60-65%. Knows she's in the hosptial but can't provide date. Allergies/Adverse Reactions: Allergies Allergy/AdvReac Type Severity Reaction Status Date / Time No Known Allergies Allergy Unverified 01/16/17 15:43 Active Medications Aspirin (Asa -) 81 mg PO DAILY [facility] Last Admin: 04/05/18 09:44 Dose: 81 mg Diltiazem HCl (Cardizem Cd -) 180 mg PO BID [facility] Last Admin: 04/05/18 21:23 Dose: 180 mg Donepezil HCl (Aricept -) 5 mg PO HS [facility] Last Admin: 04/05/18 21:23 Dose: 5 mg Hydralazine HCl (Apresoline -) 50 mg PO TID [facility] Last Admin: 04/06/18 06:09 Dose: 50 mg Hydroxychloroquine Sulfate (Plaquenil -) 200 mg PO DAILY [facility] Last Admin: 04/05/18 09:44 Dose: 200 mg Isosorbide Mononitrate (Imdur -) 60 mg PO BID [facility] Last Admin: 04/05/18 21:23 Dose: 60 mg Levothyroxine Sodium (Synthroid -) 50 mcg PO ACBK [facility] Last Admin: 04/06/18 06:46 Dose: 50 mcg Losartan Potassium (Cozaar -) 100 mg PO DAILY [facility] Last Admin: 04/05/18 09:44 Dose: 100 mg *Physical Exam Vital Signs Period Temp Pulse Resp BP Sys/Negron Pulse Ox Last 24 Hr 98 F-98.9 F 66-82 17-20 121-145/54-75 97 General Appearance: Nourished. No Apparent Distress HEENT: No Pharyngeal Erythema, Tonsillar Exudate, Tonsillar Erythema Neck: No Cervical Lymphadenopathy Respiratory/Chest: Lungs Clear, Normal Breath Sounds. No Crackles, Rales, Rhonchi, Wheezing Cardiovascular: Regular Rhythm, Regular Rate. 2/6 Systolic murmur noted on exam. No Gallops, Rubs Gastrointestinal/Abdominal: Normal Bowel Sounds, Soft. No Guarding, Rebound, Tenderness Musculoskeletal: No CVA Tenderness Extremity: Normal Capillary Refill Integumentary: Normal Color, Dry, Warm Neurologic: Awake, alert, interactive, able to tell location, does not know date, CN intact, strenght grossly symmetric and equal, sensory intact, gait deferred CBCD WBC 8.2 K/mm3 (4.0-10.0) 04/03/18 03:32 RBC 3.94 M/mm3 (3.60-5.2) 04/03/18 03:32 Hgb 10.9 GM/dL (10.7-15.3) 04/03/18 03:32 Hct 31.4 % (32.4-45.2) L 04/03/18 03:32 MCV 79.9 fl (80-96) L 04/03/18 03:32 MCHC 34.6 g/dl (32.0-36.0) 04/03/18 03:32 RDW 20.1 % (11.6-15.6) H 04/03/18 03:32 Plt Count 201 K/MM3 (134-434) D 04/03/18 03:32 MPV 8.8 fl (7.5-11.1) 04/03/18 03:32 CMP Sodium 142 mmol/L (136-145) 04/03/18 03:32 Potassium 4.0 mmol/L (3.5-5.1) 04/03/18 03:32 Chloride 107 mmol/L (98-107) 04/03/18 03:32 Carbon Dioxide 27 mmol/L (21-32) 04/03/18 03:32 Anion Gap 9 MMOL/L (8-16) 04/03/18 03:32 BUN 41 mg/dL (7-18) H 04/03/18 03:32 Creatinine 1.3 mg/dL (0.55-1.3) 04/03/18 03:32 Creat Clearance w eGFR 38.93 (>60) 04/03/18 03:32 Random Glucose 90 mg/dL (74-106) 04/03/18 03:32 Calcium 9.0 mg/dL (8.5-10.1) 04/03/18 03:32 Total Bilirubin 0.5 mg/dL (0.2-1) 04/03/18 03:32 AST 33 U/L (15-37) 04/03/18 03:32 ALT 22 U/L (13-61) 04/03/18 03:32 Alkaline Phosphatase 91 U/L (45-117) 04/03/18 03:32 Total Protein 9.3 g/dl (6.4-8.2) H 04/03/18 03:32 Albumin 3.4 g/dl (3.4-5.0) 04/03/18 03:32 CARDIAC ENZYMES Creatine Kinase 440 IU/L (26-192) H 04/03/18 03:32 Troponin I < 0.02 ng/ml (0.00-0.05) 04/03/18 16:[address] C spine reviewed Carotid Doppler reviewed Echo reviewed Plan: 83 year old female with a history of HTN, Thyroid Disease who presented for reported unwitnessed fall. The patient was reportedly accompanied by family who assisted and provided history. They reported that the patient had an unwitnessed fall earlier the morning of admission with possible head trauma. The patient stated that she does not remember the fall nor how she fell. The patient's family noted that the patient was appearing more altered prior to her fall, although she had returned to her baseline. She completed a noncontrast head CT which I reviewed in detail and did not show any acute abnormalities. she also completed CT of cervical spine which did not show any significant fractures or dislocations. She had similar presentation in the past and had seen her before. She had even completed MRI of the brain previously which did not show acute changes. She does not have any focal deficits and appears to be at baseline mental status, knows she's in the hospital but not date. Continue aspirin 81 mg, monitor blood pressure, maintain normotensive range, cardiac evaluation, follow-up echo. No focal deficits to require further imaging of brain. Carotids, Echo reviewed. Can continue Aricept at current dose for now. Fall precautions recommended.
--- NOTE | 2018-04-06 10:30 | PN ---
Progress Note (short form) - Note Progress Note: cc: unwitnessed fall s: no cp, palps, dizzy, dyspnea. stable edema. tele: sinus, PACs, PVCs o: Current Medications Aspirin (Asa -) 81 mg PO DAILY [facility] Last Admin: 04/05/18 09:44 Dose: 81 mg Diltiazem HCl (Cardizem Cd -) 180 mg PO BID [facility] Last Admin: 04/05/18 21:23 Dose: 180 mg Donepezil HCl (Aricept -) 5 mg PO HS [facility] Last Admin: 04/05/18 21:23 Dose: 5 mg Hydralazine HCl (Apresoline -) 50 mg PO TID [facility] Last Admin: 04/06/18 06:09 Dose: 50 mg Hydroxychloroquine Sulfate (Plaquenil -) 200 mg PO DAILY [facility] Last Admin: 04/05/18 09:44 Dose: 200 mg Isosorbide Mononitrate (Imdur -) 60 mg PO BID [facility] Last Admin: 04/05/18 21:23 Dose: 60 mg Levothyroxine Sodium (Synthroid -) 50 mcg PO ACBK [facility] Last Admin: 04/06/18 06:46 Dose: 50 mcg Losartan Potassium (Cozaar -) 100 mg PO DAILY [facility] Last Admin: 04/05/18 09:44 Dose: 100 mg Vital Signs Period Temp Pulse Resp BP Sys/Negron Pulse Ox Last 24 Hr 98 F-98.9 F 66-82 17-20 121-145/54-75 97 nad no jvd rrr s1s2 +as murmur, no rg cta bl nl eff alert awake appropriate trace le edema, no c/c abd nt nd pos bs no jaundice diaphoresis pos dp pt no carotid bruits ecg: sr, pacs, nl intervals, no ischemic changes cxr: no chf echo 03/2016: nl lv/rv, mild lae, mild ar, mod , mac, mild tr, mild phtn echo 05/2016: nl lv/rv, mod donte, rvsp 40-50, mod tr, mod as, mild-mod ar, mild- mod pr echo 03/2018: nl lv/rv, mod lae, mild pr, mod tr, rvsp 30-40, mod ar, mod-sev as (gradients and valve area c/w mod ) event monitor (2 weeks) 03/2016: benign, occ pacs, pvcs carotids 01/2015: small plaque, no sig stenosis carotids 05/2016: small plaque, no sig stenosis mibi 02/2015: no ischemia a/p: 83 f hx htn, hypothyroid, sle, , dchf/le edema, tia 2016, dementia here with unwitnessed fall. fall: -no details available, possibly mechanical -check orthostatics, monitoring on tele -echo unchanged from prior - carotid ultrasound report pending -no signs acs or chf -PT eval - stable from cardiac perspective - dc tele htn: -cont home meds : -05/2016 echo with moderate , current echo reports mod-sev but gradients and valve area consistent with moderate and similar to prior echo from 2015, so no significant change. Outpt monitoring. chronic diastolic chf, le edema: -stable, no gross vol overload. was on lasix po 60 qd at home but here with mild chery, resume lasix at lower dose 40 qd when dc dc telemetry
[2018-04-06] MEDS: LOSARTAN POTASSIUM 50 MG TABLET (FP) PO SCH (11:27)
[2018-04-06] MEDS: ISOSORBIDE MONONITRATE 60 MG TAB.SR.24H (FP) PO SCH ×2 (11:27→23:25)
[2018-04-06] MEDS: ASPIRIN 81 MG CHEWABLE TABLETS PO SCH (11:27)
[2018-04-06] MEDS: HYDROXYCHLOROQUINE SO4 200 MG TABLET (FP) PO SCH (11:28)
[2018-04-06] MEDS ORDERED: BISACODYL 5 MG TABLET.DR (FP) PO ONE ×2 (12:01→17:15)
--- NOTE | 2018-04-06 12:06 | PN ---
Progress Note, Physician Chief Complaint: Pt laying in bed in no acute distress. Reports feeling well. Denies any chest pain, sob, n/v/d - Current Medication List Current Medications: Active Medications Aspirin (Asa -) 81 mg PO DAILY [facility] Last Admin: 04/06/18 11:27 Dose: 81 mg Bisacodyl (Dulcolax -) 20 mg PO ONCE ONE Stop: 04/06/18 12:02 Diltiazem HCl (Cardizem Cd -) 180 mg PO BID [facility] Last Admin: 04/06/18 11:27 Dose: 180 mg Donepezil HCl (Aricept -) 5 mg PO HS [facility] Last Admin: 04/05/18 21:23 Dose: 5 mg Hydralazine HCl (Apresoline -) 50 mg PO TID [facility] Last Admin: 04/06/18 06:09 Dose: 50 mg Hydroxychloroquine Sulfate (Plaquenil -) 200 mg PO DAILY [facility] Last Admin: 04/06/18 11:28 Dose: 200 mg Isosorbide Mononitrate (Imdur -) 60 mg PO BID [facility] Last Admin: 04/06/18 11:27 Dose: 60 mg Levothyroxine Sodium (Synthroid -) 50 mcg PO ACBK [facility] Last Admin: 04/06/18 06:46 Dose: 50 mcg Losartan Potassium (Cozaar -) 100 mg PO DAILY [facility] Last Admin: 04/06/18 11:27 Dose: 100 mg Polyethylene Glycol (Miralax (For Daily Use) -) 17 gm PO BID [facility] - Objective Vital Signs: Vital Signs Temperature 98.6 F 04/06/18 09:00 Pulse Rate 79 04/06/18 09:00 Respiratory Rate 18 04/06/18 09:00 Blood Pressure 146/84 04/06/18 09:00 O2 Sat by Pulse Oximetry (%) 97 04/05/18 21:00 Constitutional: Yes: Well Nourished, No Distress, Calm Cardiovascular: Yes: Regular Rate and Rhythm Respiratory: Yes: WNL, Regular, CTA Bilaterally. No: Accessory Muscle Use, SOB , Tachypnea, Wheezes Gastrointestinal: Yes: Normal Bowel Sounds, Soft. No: Distention, Tenderness Musculoskeletal: Yes: Joint Swelling (Left knee) Neurological: Yes: Alert, Oriented Psychiatric: Yes: Alert Labs: CBC, BMP 04/03/18 03:32 04/03/18 03:32 Problem List - Problems (1) Syncope Code(s): R55 - SYNCOPE AND COLLAPSE Qualifiers: Syncope type: unspecified Qualified Code(s): R55 - Syncope and collapse (2) RAMAN (acute kidney injury) Code(s): N17.9 - ACUTE KIDNEY FAILURE, UNSPECIFIED (3) Hypertension Code(s): I10 - ESSENTIAL (PRIMARY) HYPERTENSION Qualifiers: Hypertension type: essential hypertension Qualified Code(s): I10 - Essential (primary) hypertension (4) Hypothyroid Code(s): E03.9 - HYPOTHYROIDISM, UNSPECIFIED (5) CHF (congestive heart failure) Code(s): I50.9 - HEART FAILURE, UNSPECIFIED Qualifiers: Heart failure type: diastolic Heart failure chronicity: chronic Qualified Code(s): I50.32 - Chronic diastolic (congestive) heart failure (6) Aortic stenosis Code(s): I35.0 - NONRHEUMATIC AORTIC (VALVE) STENOSIS (7) Cognitive impairment Code(s): R41.89 - OTH SYMPTOMS AND SIGNS W COGNITIVE FUNCTIONS AND AWARENESS (8) Lupus Code(s): L93.0 - DISCOID LUPUS ERYTHEMATOSUS (9) Anemia Code(s): D64.9 - ANEMIA, UNSPECIFIED (10) Effusion, left knee Code(s): M25.462 - EFFUSION, LEFT KNEE Assessment/Plan (1) Syncope Assessment/Plan: unwitnessed fall at home cardiac/neuro/infectious etiology ruled out Left knee xray- large effusion, no fx, ortho consulted PT- ambulated 15ft SNF placement Code(s): R55 - SYNCOPE AND COLLAPSE Qualifiers: Syncope type: unspecified Qualified Code(s): R55 - Syncope and collapse (2) Effusion, left knee Assessment/Plan: as above ortho following- aspiration if family agrees awaiting family decision and ortho clearance Code(s): M25.462 - EFFUSION, LEFT KNEE (3) RAMAN (acute kidney injury) Assessment/Plan: improved encourage po intake monitor Code(s): N17.9 - ACUTE KIDNEY FAILURE, UNSPECIFIED (4) Hypertension Assessment/Plan: controlled continue home meds Code(s): I10 - ESSENTIAL (PRIMARY) HYPERTENSION Qualifiers: Hypertension type: essential hypertension Qualified Code(s): I10 - Essential (primary) hypertension (5) Hypothyroid Assessment/Plan: stable continue synthroid outpt f/u Code(s): E03.9 - HYPOTHYROIDISM, UNSPECIFIED (6) CHF (congestive heart failure) Assessment/Plan: stable, minimal le edema on lasix 60mg at home d/c on 40mg lasix upon d/c cardiology consult appreciated Code(s): I50.9 - HEART FAILURE, UNSPECIFIED Qualifiers: Heart failure type: diastolic Heart failure chronicity: chronic Qualified Code(s): I50.32 - Chronic diastolic (congestive) heart failure (7) Aortic stenosis Assessment/Plan: stable on echo continue cardiology f/u Code(s): I35.0 - NONRHEUMATIC AORTIC (VALVE) STENOSIS (8) Cognitive impairment Assessment/Plan: stable continue aricept neurology following Code(s): R41.89 - OTH SYMPTOMS AND SIGNS W COGNITIVE FUNCTIONS AND AWARENESS (9) Lupus Assessment/Plan: stable continue plaquenil bid outpt rheum f/u Code(s): L93.0 - DISCOID LUPUS ERYTHEMATOSUS (10) Anemia Assessment/Plan: h/h stable per outpt records, chronic continue iron supplements Code(s): D64.9 - ANEMIA, UNSPECIFIED Dispo: SNF, pending ortho clearance
--- NOTE | 2018-04-06 12:45 | CON.ORTH ---
Consult Reason for Consultation:: left knee pain s/p fall - Past Medical History [employer]: Yes: TIA, Other (cognitive impairment) Cardio/Vascular: Yes: Aortic Stenosis, CHF, HTN, Murmur Pulmonary: Yes: Other (ILD) Musculoskeletal: Yes: Osteoarthritis Rheumatology: Yes: Lupus Endocrine: Yes: Hypothyroidism - Alcohol/Substance Use Hx Alcohol Use: No History of Substance Use: reports: None - Smoking History Smoking history: Never smoked Have you smoked in the past 12 months: No - Social History ADL: Family Assistance Occupation: former nurse's aide History of Recent Travel: No Home Medications - Allergies Allergies/Adverse Reactions: Allergies Allergy/AdvReac Type Severity Reaction Status Date / Time No Known Allergies Allergy Unverified 01/16/17 15:43 - Home Medications Home Medications: Ambulatory Orders Aspirin [ASA -] 81 mg PO DAILY 05/14/16 Diltiazem [Cardizem -] 180 mg PO BID 05/14/16 Donepezil HCl 5 mg PO HS 05/14/16 Furosemide 60 mg PO DAILY 05/14/16 Hydralazine HCl 50 mg PO TID 05/14/16 Isosorbide Mononitrate [Imdur -] 60 mg PO BID 05/14/16 Levothyroxine [Synthroid -] 50 mcg PO DAILY 05/14/16 Losartan Potassium 100 mg PO DAILY 05/14/16 Hydroxychloroquine So4 [Plaquenil -] 200 mg PO BID 01/16/17 Risedronate Sodium 150 mg PO MONTHLY 01/16/17 Physical Exam for Ortho Vital Signs: Vital Signs Temperature 98.6 F 04/06/18 09:00 Pulse Rate 79 04/06/18 09:00 Respiratory Rate 18 04/06/18 09:00 Blood Pressure 146/84 04/06/18 09:00 O2 Sat by Pulse Oximetry (%) 97 04/05/18 21:00 Labs: CBC, BMP 04/03/18 03:32 04/03/18 03:32 - Lower Extremity Knee: Yes: Left, Swelling, Tenderness, Other (2+ effusion, mild ttp medially, no ttp laterally, able to SLR, rom 0-90, calf soft, nt, nvi) Imaging - Results X-ray: Report Reviewed, Image Reviewed Assessment/Plan 83-year-old female with a history of hypertension, dementia, thyroid disease presents to the emergency Department after an unwitnessed fall at home. We were asked to evaluate her left knee to r/o fx. 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 lateral tibial plateau fx however pt has no pain in this location) PT wbat spoke with daughter regarding aspiration of left knee, she would like to speak to other family members and will let us know aspiration may help with pts pain will follow d/w Dr. Dhaliwal
[2018-04-06 14:51] LABS: ANION GAP 6 MMOL/L (8-16); BLOOD UREA NITROGEN 32 mg/dL (7-18); CALCIUM 8.3 mg/dL (8.5-10.1); CHLORIDE 113 mmol/L (98-107); CO2 25 mmol/L (21-32); CREATININE 0.9 mg/dL (0.55-1.3); GLUCOSE,RANDOM 116 mg/dL (74-106); SODIUM 144 mmol/L (136-145)
[2018-04-06] MEDS: POLYETHYLENE GLYCOL 3350 119 GM BTL PO SCH ×2 (17:47→23:23)
[2018-04-06] MEDS: SENNOSIDES 8.6MG TABLET (FP) PO SCH (23:25)
[2018-04-06] MEDS: DONEPEZIL HCL 5 MG TABLET (FP) PO SCH (23:25)
[2018-04-07] MEDS: LEVOTHYROXINE NA 50 MCG TABLET (FP) PO SCH (06:17)
[2018-04-07] MEDS: hydrALAZINE HCL 50 MG TABLET (FP) PO SCH ×3 (06:17→21:22)
--- NOTE | 2018-04-07 09:26 | PN ---
Progress Note (short form) - Note Progress Note: Neurology History of Present Illness 83 year old female with a history of HTN, Thyroid Disease who presented for reported unwitnessed fall. The patient was reportedly accompanied by family who assisted and provided history. They reported that the patient had an unwitnessed fall earlier the morning of admission with possible head trauma. The patient stated that she does not remember the fall nor how she fell. The patient's family noted that the patient was appearing more altered prior to her fall, although she had returned to her baseline. She completed a noncontrast head CT which I reviewed in detail and did not show any acute abnormalities. she also completed CT of cervical spine which did not show any significant fractures or dislocations. She had similar presentation in the past and had seen her before. She had even completed MRI of the brain previously which did not show acute changes. She completed Carotid doppler which were reviewed and without high grade stenosis. Echo also completed, cardiology following, LV hyperdynamic, EF 60-65%. Knows she's in the hosptial but can't provide date. Remains neurologically stable and no new events overnight. Being planned for discharge. Cardiology note reviewed, tele dc. No new complaints. Allergies/Adverse Reactions: Allergies Allergy/AdvReac Type Severity Reaction Status Date / Time No Known Allergies Allergy Unverified 01/16/17 15:43 Active Medications Aspirin (Asa -) 81 mg PO DAILY [facility] Last Admin: 04/06/18 11:27 Dose: 81 mg Diltiazem HCl (Cardizem Cd -) 180 mg PO BID [facility] Last Admin: 04/06/18 23:26 Dose: 180 mg Donepezil HCl (Aricept -) 5 mg PO HS [facility] Last Admin: 04/06/18 23:25 Dose: 5 mg Hydralazine HCl (Apresoline -) 50 mg PO TID [facility] Last Admin: 04/07/18 06:17 Dose: 50 mg Hydroxychloroquine Sulfate (Plaquenil -) 200 mg PO DAILY [facility] Last Admin: 04/06/18 11:28 Dose: 200 mg Isosorbide Mononitrate (Imdur -) 60 mg PO BID [facility] Last Admin: 04/06/18 23:25 Dose: 60 mg Levothyroxine Sodium (Synthroid -) 50 mcg PO ACBK [facility] Last Admin: 04/07/18 06:17 Dose: 50 mcg Losartan Potassium (Cozaar -) 100 mg PO DAILY [facility] Last Admin: 04/06/18 11:27 Dose: 100 mg Polyethylene Glycol (Miralax (For Daily Use) -) 17 gm PO BID [facility] Last Admin: 04/06/18 23:23 Dose: Not Given Senna (Senna -) 2 tab PO HS [facility] Last Admin: 04/06/18 23:25 Dose: Not Given *Physical Exam Vital Signs Period Temp Pulse Resp BP Sys/Negron Pulse Ox Last 24 Hr 98.2 F-99.0 F 70-82 18-20 134-149/58-88 96 General Appearance: Nourished. No Apparent Distress HEENT: No Pharyngeal Erythema, Tonsillar Exudate, Tonsillar Erythema Neck: No Cervical Lymphadenopathy Respiratory/Chest: Lungs Clear, Normal Breath Sounds. No Crackles, Rales, Rhonchi, Wheezing Cardiovascular: Regular Rhythm, Regular Rate. 2/6 Systolic murmur noted on exam. No Gallops, Rubs Gastrointestinal/Abdominal: Normal Bowel Sounds, Soft. No Guarding, Rebound, Tenderness Musculoskeletal: No CVA Tenderness Extremity: Normal Capillary Refill Integumentary: Normal Color, Dry, Warm Neurologic: Awake, alert, interactive, able to tell location, does not know date, CN intact, strenght grossly symmetric and equal, sensory intact, gait deferred CBCD WBC 8.2 K/mm3 (4.0-10.0) 04/03/18 03:32 RBC 3.94 M/mm3 (3.60-5.2) 04/03/18 03:32 Hgb 10.9 GM/dL (10.7-15.3) 04/03/18 03:32 Hct 31.4 % (32.4-45.2) L 04/03/18 03:32 MCV 79.9 fl (80-96) L 04/03/18 03:32 MCHC 34.6 g/dl (32.0-36.0) 04/03/18 03:32 RDW 20.1 % (11.6-15.6) H 04/03/18 03:32 Plt Count 201 K/MM3 (134-434) D 04/03/18 03:32 MPV 8.8 fl (7.5-11.1) 04/03/18 03:32 CMP Sodium 144 mmol/L (136-145) 04/06/18 13:45 Potassium 4.0 mmol/L (3.5-5.1) 04/06/18 13:45 Chloride 113 mmol/L (98-107) H 04/06/18 13:45 Carbon Dioxide 25 mmol/L (21-32) 04/06/18 13:45 Anion Gap 6 MMOL/L (8-16) L 04/06/18 13:45 BUN 32 mg/dL (7-18) H 04/06/18 13:45 Creatinine 0.9 mg/dL (0.55-1.3) 04/06/18 13:45 Creat Clearance w eGFR 59.51 (>60) 04/06/18 13:45 Random Glucose 116 mg/dL (74-106) H 04/06/18 13:45 Calcium 8.3 mg/dL (8.5-10.1) L 04/06/18 13:45 Total Bilirubin 0.5 mg/dL (0.2-1) 04/03/18 03:32 AST 33 U/L (15-37) 04/03/18 03:32 ALT 22 U/L (13-61) 04/03/18 03:32 Alkaline Phosphatase 91 U/L (45-117) 04/03/18 03:32 Total Protein 9.3 g/dl (6.4-8.2) H 04/03/18 03:32 Albumin 3.4 g/dl (3.4-5.0) 04/03/18 03:32 CARDIAC ENZYMES Creatine Kinase 440 IU/L (26-192) H 04/03/18 03:32 Troponin I < 0.02 ng/ml (0.00-0.05) 04/03/18 16:[address] C spine reviewed Carotid Doppler reviewed Echo reviewed Plan: 83 year old female with a history of HTN, Thyroid Disease who presented for reported unwitnessed fall. The patient was reportedly accompanied by family who assisted and provided history. They reported that the patient had an unwitnessed fall earlier the morning of admission with possible head trauma. The patient stated that she does not remember the fall nor how she fell. The patient's family noted that the patient was appearing more altered prior to her fall, although she had returned to her baseline. She completed a noncontrast head CT which I reviewed in detail and did not show any acute abnormalities. she also completed CT of cervical spine which did not show any significant fractures or dislocations. She had similar presentation in the past and had seen her before. She had even completed MRI of the brain previously which did not show acute changes. She does not have any focal deficits and appears to be at baseline mental status, knows she's in the hospital but not date. Continue aspirin 81 mg, monitor blood pressure, maintain normotensive range, cardiac evaluation, follow-up echo. No focal deficits to require further imaging of brain. Carotids, Echo reviewed. Can continue Aricept at current dose for now. Neurologically stable, can follow up as outpatient. Fall precautions recommended.
[2018-04-07] MEDS: ISOSORBIDE MONONITRATE 60 MG TAB.SR.24H (FP) PO SCH ×2 (09:46→21:23)
[2018-04-07] MEDS: LOSARTAN POTASSIUM 50 MG TABLET (FP) PO SCH (09:46)
[2018-04-07] MEDS: ASPIRIN 81 MG CHEWABLE TABLETS PO SCH (09:46)
[2018-04-07] MEDS: HYDROXYCHLOROQUINE SO4 200 MG TABLET (FP) PO SCH (09:49)
--- NOTE | 2018-04-07 10:14 | PN ---
Progress Note (short form) - Note Progress Note: Ortho Pt seen and examined- denies any pain at rest PE- left knee- 2 + effusion, minimal ttp, rom 0-100, calf soft, nt nvi a/p PT wbat still waiting for family approval for aspiration/injection of cortisone pain control ok to d/c from ortho pov d/w Dr. Dhaliwal
--- NOTE | 2018-04-07 10:26 | PN ---
Progress Note (short form) - Note Progress Note: cc: unwitnessed fall s: no cp, palps, dizzy, dyspnea. stable edema. no complaints tele: sinus, PACs, PVCs, NSVT o: Current Medications Aspirin (Asa -) 81 mg PO DAILY [facility] Last Admin: 04/07/18 09:46 Dose: 81 mg Diltiazem HCl (Cardizem Cd -) 180 mg PO BID [facility] Last Admin: 04/07/18 09:46 Dose: 180 mg Donepezil HCl (Aricept -) 5 mg PO HS [facility] Last Admin: 04/06/18 23:25 Dose: 5 mg Hydralazine HCl (Apresoline -) 50 mg PO TID [facility] Last Admin: 04/07/18 06:17 Dose: 50 mg Hydroxychloroquine Sulfate (Plaquenil -) 200 mg PO DAILY [facility] Last Admin: 04/07/18 09:49 Dose: 200 mg Isosorbide Mononitrate (Imdur -) 60 mg PO BID [facility] Last Admin: 04/07/18 09:46 Dose: 60 mg Levothyroxine Sodium (Synthroid -) 50 mcg PO ACBK [facility] Last Admin: 04/07/18 06:17 Dose: 50 mcg Losartan Potassium (Cozaar -) 100 mg PO DAILY [facility] Last Admin: 04/07/18 09:46 Dose: 100 mg Polyethylene Glycol (Miralax (For Daily Use) -) 17 gm PO BID [facility] Last Admin: 04/06/18 23:23 Dose: Not Given Senna (Senna -) 2 tab PO [facility] Last Admin: 04/06/18 23:25 Dose: Not Given Vital Signs Period Temp Pulse Resp BP Sys/Negron Pulse Ox Last 24 Hr 98.2 F-99.0 F 70-82 18-20 134-149/58-88 96 nad no jvd rrr s1s2 +as murmur, no rg cta bl nl eff alert awake appropriate trace le edema, no c/c abd nt nd pos bs no jaundice diaphoresis pos dp pt no carotid bruits ecg: sr, pacs, nl intervals, no ischemic changes cxr: no chf echo 03/2016: nl lv/rv, mild lae, mild ar, mod , mac, mild tr, mild phtn echo 05/2016: nl lv/rv, mod donte, rvsp 40-50, mod tr, mod as, mild-mod ar, mild- mod pr echo 03/2018: nl lv/rv, mod lae, mild pr, mod tr, rvsp 30-40, mod ar, mod-sev as (gradients and valve area c/w mod ) event monitor (2 weeks) 03/2016: benign, occ pacs, pvcs carotids 01/2015: small plaque, no sig stenosis carotids 05/2016: small plaque, no sig stenosis mibi 02/2015: no ischemia a/p: 83 f hx htn, hypothyroid, sle, , dchf/le edema, tia 2015, dementia here with unwitnessed fall. fall: -no details available, possibly mechanical -check orthostatics, monitoring on tele -echo unchanged from prior - carotid ultrasound report no high grade stenosis bilaterally -no signs acs or chf -PT eval - stable from cardiac perspective - dc tele htn: -cont home meds : -05/2016 echo with moderate , current echo reports mod-sev but gradients and valve area consistent with moderate and similar to prior echo from 2015, so no significant change. Outpt monitoring. chronic diastolic chf, le edema: -stable, no gross vol overload. was on lasix po 60 qd at home but here with mild chery, resume lasix at lower dose 40 qd when dc dc telemetry
[2018-04-07] MEDS: POLYETHYLENE GLYCOL 3350 119 GM BTL PO SCH ×2 (10:40→21:23)
[2018-04-07] MEDS ORDERED: LIDOCAINE 1% P/F 10 MG/ML VIAL SQ ONE (11:15)
[2018-04-07] MEDS ORDERED: methylPREDNISolone ACET (DEPO) 80 MG/1 ML VIAL IAR ONE (11:15)
--- NOTE | 2018-04-07 13:03 | DS ---
Physical Examination Vital Signs: Vital Signs Temperature 98.2 F 04/07/18 06:14 Pulse Rate 82 04/07/18 06:14 Respiratory Rate 20 04/07/18 06:14 Blood Pressure 149/74 04/07/18 06:14 O2 Sat by Pulse Oximetry (%) 96 04/06/18 21:00 Constitutional: Yes: Well Nourished, No Distress, Calm Cardiovascular: Yes: Regular Rate and Rhythm, Murmur Respiratory: Yes: Regular, CTA Bilaterally. No: Accessory Muscle Use, SOB, Tachypnea, Wheezes Gastrointestinal: Yes: WNL, Normal Bowel Sounds, Soft. No: Distention, Tenderness Renal/: Yes: WNL Musculoskeletal: Yes: Joint Swelling (b/l knees) Neurological: Yes: Alert Psychiatric: Yes: Alert Labs: CBC, BMP 04/03/18 03:32 04/06/18 13:45 Discharge Summary Reason For Visit: SYNCOPE Current Active Problems RAMAN (acute kidney injury) (Acute) Anemia (Acute) Aortic stenosis (Acute) CHF (congestive heart failure) (Acute) Cognitive impairment (Acute) Effusion, left knee (Acute) Fall (Acute) Lupus (Acute) Syncope (Acute) Hospital Course: is an 83 year old female who was admitted from home for evaluation of an unwitnessed fall. All cardiac/neuro/infectious work up negative. Pt found to be dehydrated, was taking lasix 60mg at home, improved s/p ivf, lasix reduced to 40mg. Cardiology, neurology consults appreciated. Left knee xray reveals large effusion, plan for aspiration and corticosteroid injection by Ortho today. Pt ambulatd 30 ft w/ PT, poorly tolerated, pt can benefit from SNF however insurance denied SNF placement. 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 Home PT w/ [facility] recommended for rehabilitation. Otherwise, pt is medically stable for discharge home. 32 minutes spent in discharge planning Condition: Stable - Instructions Diet, Activity, Other Instructions: ambulate/diet as tolerated LASIX 40MG daily f/u as directed Referrals: Nils Voss MD [Primary Care Provider] - 1 Week Eliana Muhammad MD [Staff Physician] - 2 Weeks Narciso Prince MD [Staff Physician] - Disposition: [facility]/HOME HEALTH CARE - Home Medications Comprehensive Discharge Medication List: Ambulatory Orders Aspirin [ASA -] 81 mg PO DAILY 11/01/16 Diltiazem [Cardizem -] 180 mg PO BID 05/14/16 Donepezil HCl 5 mg PO HS 05/14/16 Hydralazine HCl 50 mg PO TID 05/14/16 Isosorbide Mononitrate [Imdur -] 60 mg PO BID 05/14/16 Levothyroxine [Synthroid -] 50 mcg PO DAILY 05/14/16 Losartan Potassium 100 mg PO DAILY 05/14/16 Hydroxychloroquine So4 [Plaquenil -] 200 mg PO BID 01/16/17 Risedronate Sodium 150 mg PO MONTHLY 01/16/17 Furosemide [Lasix] 40 mg PO DAILY #30 tablet 04/07/18 Polyethylene Glycol 3350 [Miralax 119 gm Btl -] 17 gm PO BID bottle 04/07/18 Sennosides [Senna -] 2 tab PO HS tablet 04/07/18
--- NOTE | 2018-04-07 14:27 | PROC ---
Arthrocentesis - Arthrocentesis Indication: Inflammation, Steriod Injection Arthrocentesis Site: left: knee Flexion: <20 degrees Skin prep: Betadine Anesthesia: 1% Lidocaine Drainage, Color/Appearance: Clear Tube Drainage(ml): 100 Joint Injection of: Depo Medrol, Lidocaine 1% Sterile Dressing Applied: Yes Remarks: consent obtained from daughter- Dr. Khloe Lu, time-out performed, under sterile technique left knee was aspirated, 100 cc of clear fluid obtained, depo- medrol was injected, injection tolerated well, sterile pressure dressing applied
[2018-04-07] MEDS: SENNOSIDES 8.6MG TABLET (FP) PO SCH (21:23)
[2018-04-07] MEDS: DONEPEZIL HCL 5 MG TABLET (FP) PO SCH (21:23)
[2018-04-08 05:45] VITALS: BP 164/90; PULSE 64; TEMP 98.1
[2018-04-08] MEDS: hydrALAZINE HCL 50 MG TABLET (FP) PO SCH (06:03)
[2018-04-08] MEDS: LEVOTHYROXINE NA 50 MCG TABLET (FP) PO SCH (06:03)
== END 2018-04-08 07:15 | disposition home health service (06) ==
LOC: JER 02:42 → JERBED 06:13 → J4W 10:50
PROVIDERS: ADMIT Internal Medicine; ATTEND Internal Medicine
PROC: 3E0337Z Introduction of Electrolytic and Water Balance Substance into Peripheral Vein, Percutaneous Approach (ICD-10-PCS; 2018-04-03)
PROC: 3E0U33Z Introduction of Anti-inflammatory into Joints, Percutaneous Approach (ICD-10-PCS; principal; 2018-04-07)
DX: R55 Syncope and collapse (principal); N17.9 Acute kidney failure, unspecified; E03.9 Hypothyroidism, unspecified; I50.9 Heart failure, unspecified; I11.0 Hypertensive heart disease with heart failure; F03.90 Unspecified dementia, unspecified severity, without behavioral disturbance, psychotic disturbance, mood disturbance, and anxiety; M32.9 Systemic lupus erythematosus, unspecified; I35.0 Nonrheumatic aortic (valve) stenosis; R41.89 Other symptoms and signs involving cognitive functions and awareness; D64.9 Anemia, unspecified; M17.12 Unilateral primary osteoarthritis, left knee; M25.462 Effusion, left knee; E86.0 Dehydration; Z86.73 Personal history of transient ischemic attack (TIA), and cerebral infarction without residual deficits; Z79.82 Long term (current) use of aspirin; W18.30XA Fall on same level, unspecified, initial encounter; Z91.81 History of falling; Y93.9 Activity, unspecified; Y92.9 Unspecified place or not applicable
CPT/HCPCS: 36415; 70450-TC; 71045-TC-FY; 72125-TC; 73560-TC-LT-FY; 80048; 80053; 80061; 81003; 82550; 82553; 83036; 83721; 84484; 85025; 87086; 93005; 93010; 93306-TC; 93880-TC; 96360; 96361; 97116-GP; 97162-GP; 99285-25; G0378; J7030